=== PATIENT | male | born 1945 | race Caucasian/White ===

== ENCOUNTER 2016-04-09 09:39 | Outpatient (RCR) | payer OTHER, MEDICARE ==
[2016-03-18 13:21] LABS: BASOPHILS # (AUTO) 0.1 10^3/uL (0.0-0.1); BASOPHILS % (AUTO) 1 % (0-10); EOSINOPHILS # (AUTO) 0.2 10^3/uL (0.0-0.3); EOSINOPHILS % (AUTO) 2 % (0-10); LYMPHOCYTES # (AUTO) 2.2 X 10^3 (1.0-4.0); LYMPHOCYTES % (AUTO) 28 % (12-44); MEAN CORPUSCULAR HEMOGLOBIN 32 PG (25-34); MEAN CORPUSCULAR HGB CONC 35 G/DL (32-36); MEAN CORPUSCULAR VOLUME 90 FL (80-99); MEAN PLATELET VOLUME 10.2 FL (7.4-10.4); MONOCYTES # (AUTO) 0.5 X 10^3 (0.0-1.0); MONOCYTES % (AUTO) 7 % (0-12); NEUTROPHILS # (AUTO) 4.9 X 10^3 (1.8-7.8); NEUTROPHILS % (AUTO) 63 % (42-75); PLATELET COUNT 287 10^3/uL (130-400); RED BLOOD COUNT 4.71 10^6/uL (4.35-5.85); RED CELL DISTRIBUTION WIDTH 14.9 % (10.0-14.5); WHITE BLOOD COUNT 7.8 10^3/uL (4.3-11.0)
[2016-03-18 14:02] LABS: ALANINE AMINOTRANSFERASE 31 U/L (0-55); ALBUMIN 4.4 G/DL (3.2-4.5); ANION GAP 9 MMOL/L (5-14); ASPARTATE AMINO TRANSFERASE 25 U/L (5-34); BILIRUBIN,TOTAL 0.4 MG/DL (0.1-1.0); BLOOD UREA NITROGEN 11 MG/DL (7-18); BUN/CREATININE RATIO 11; CALCIUM 9.7 MG/DL (8.5-10.1); CARBON DIOXIDE 24 MMOL/L (21-32); CHLORIDE 106 MMOL/L (98-107); GFR ESTIMATED > 60; GLUCOSE 105 MG/DL (70-105); SODIUM 139 MMOL/L (135-145); TOTAL PROTEIN 7.4 G/DL (6.4-8.2)
[2016-03-18 14:25] LABS: LACTATE DEHYDROGENASE 189 U/L (125-220)
[2016-03-18 14:28] LABS: PEP REPORT SEE PATH REPORT
[2016-03-18 14:47] LABS: ERYTHROCYTE SEDIMENTATION RATE 48 MM/HR (0-30)
[2016-03-19 03:58] LABS: IMMUNOGLOBULIN IGA 268 mg/dL (71-263); IMMUNOGLOBULIN IGG 680 mg/dL (672-1680); LIGHT CHAIN KAPPA SERUM QUANT 17.91 mg/L (3.30-19.40); LIGHT CHAIN LAMBDA SERUM QUANT 17.17 mg/L (5.71-26.30)
[2016-03-19 08:03] LABS: IMMUNOGLOBULIN IGM 302 mg/dL (47-209)
[2016-03-21 07:32] LABS: CLIN PATHOLOGY REPORT FOOTNOTE; SERUM PROTEIN ELEC DETAIL L-16-0014529
[2016-03-24 13:38] LABS: RED BLOOD COUNT 4.54 10^6/uL (4.35-5.85); RETICULOCYTE % 0.72 % (0.50-2.40)
[~2016-04-09 09:39] MED LIST: LEVO500T2 PO; NPD5OP OP; PRD20T PO; TRAM50TA2 PO
[2016-04-09 09:59] LABS: BASOPHILS # (AUTO) 0.1 10^3/uL (0.0-0.1); BASOPHILS % (AUTO) 1 % (0-10); EOSINOPHILS # (AUTO) 0.3 10^3/uL (0.0-0.3); EOSINOPHILS % (AUTO) 4 % (0-10); LYMPHOCYTES # (AUTO) 2.2 X 10^3 (1.0-4.0); LYMPHOCYTES % (AUTO) 30 % (12-44); MEAN CORPUSCULAR HEMOGLOBIN 31 PG (25-34); MEAN CORPUSCULAR HGB CONC 34 G/DL (32-36); MEAN CORPUSCULAR VOLUME 91 FL (80-99); MEAN PLATELET VOLUME 10.2 FL (7.4-10.4); MONOCYTES # (AUTO) 0.5 X 10^3 (0.0-1.0); MONOCYTES % (AUTO) 7 % (0-12); NEUTROPHILS # (AUTO) 4.1 X 10^3 (1.8-7.8); NEUTROPHILS % (AUTO) 58 % (42-75); PLATELET COUNT 264 10^3/uL (130-400); RED BLOOD COUNT 4.51 10^6/uL (4.35-5.85); RED CELL DISTRIBUTION WIDTH 14.6 % (10.0-14.5); WHITE BLOOD COUNT 7.1 10^3/uL (4.3-11.0)
[2016-04-09 10:38] LABS: ALANINE AMINOTRANSFERASE 24 U/L (0-55); ANION GAP 10 MMOL/L (5-14); ASPARTATE AMINO TRANSFERASE 23 U/L (5-34); BILIRUBIN,TOTAL 0.3 MG/DL (0.1-1.0); BLOOD UREA NITROGEN 8 MG/DL (7-18); BUN/CREATININE RATIO 8; CALCIUM 9.4 MG/DL (8.5-10.1); CARBON DIOXIDE 21 MMOL/L (21-32); CHLORIDE 108 MMOL/L (98-107); CREATININE SERUM 0.96 MG/DL (0.60-1.30); GFR ESTIMATED > 60; GLUCOSE 150 MG/DL (70-105); POTASSIUM 4.4 MMOL/L (3.6-5.0); SODIUM 139 MMOL/L (135-145); TOTAL PROTEIN 6.9 G/DL (6.4-8.2)
== END 2016-06-16 | disposition home or self-care (01) ==
LOC: ONC 09:39
PROVIDERS: ATTEND Internal Medicine Hematology & Oncology
DX: D47.2 Monoclonal gammopathy (principal); B02.9 Zoster without complications; E78.5 Hyperlipidemia, unspecified; F17.210 Nicotine dependence, cigarettes, uncomplicated; Z79.82 Long term (current) use of aspirin; Z79.899 Other long term (current) drug therapy
CPT/HCPCS: 36415; 80053; 82232; 82784; 83615; 83883; 84155; 84165; 85025; 85045; 85652; 85810; 86880; 99213; 99214

== ENCOUNTER → 2016-07-28 | Outpatient (CLI) | payer OTHER, MEDICARE ==
--- NOTE | 2016-07-28 08:31 | Diagnostic Imaging Report ---
PROCEDURE: US Thyroid. TECHNIQUE: Multiple real-time grayscale images were obtained of the thyroid in various projections. INDICATION: Monoclonal gammopathy. COMPARISON: None. FINDINGS: Both thyroid lobes demonstrate smooth and homogenous echotexture. There are no focal lesions seen. Color flow Doppler demonstrates normal and symmetric vascularity, bilaterally. The right lobe measures 4.6 x 1.6 x 1.8 cm, the left lobe measures 3.8 x 1.6 x 1.9 cm. The isthmus measures is within normal limits. IMPRESSION: Unremarkable thyroid sonogram. Dictated by: Dictated on workstation # [id number]
== END ==
LOC: RAD 07:20
PROVIDERS: ATTEND Internal Medicine Hematology & Oncology
DX: D47.2 Monoclonal gammopathy (principal); E78.5 Hyperlipidemia, unspecified
CPT/HCPCS: 76536

== ENCOUNTER 2016-08-06 09:40 | Outpatient (RCR) | payer OTHER, MEDICARE ==
[2016-08-06 09:57] LABS: BASOPHILS % (AUTO) 0 % (0-10); EOSINOPHILS # (AUTO) 0.2 10^3/uL (0.0-0.3); EOSINOPHILS % (AUTO) 2 % (0-10); LYMPHOCYTES # (AUTO) 2.4 X 10^3 (1.0-4.0); LYMPHOCYTES % (AUTO) 24 % (12-44); MEAN CORPUSCULAR HEMOGLOBIN 31 PG (25-34); MEAN CORPUSCULAR HGB CONC 35 G/DL (32-36); MEAN CORPUSCULAR VOLUME 89 FL (80-99); MONOCYTES # (AUTO) 0.5 X 10^3 (0.0-1.0); MONOCYTES % (AUTO) 5 % (0-12); NEUTROPHILS # (AUTO) 6.8 X 10^3 (1.8-7.8); NEUTROPHILS % (AUTO) 68 % (42-75); PLATELET COUNT 226 10^3/uL (130-400); RED BLOOD COUNT 4.91 10^6/uL (4.35-5.85); RED CELL DISTRIBUTION WIDTH 14.2 % (10.0-14.5); WHITE BLOOD COUNT 9.9 10^3/uL (4.3-11.0)
[2016-08-06 10:27] LABS: ALANINE AMINOTRANSFERASE 23 U/L (0-55); ANION GAP 10 MMOL/L (5-14); ASPARTATE AMINO TRANSFERASE 22 U/L (5-34); BILIRUBIN,TOTAL 0.4 MG/DL (0.1-1.0); BLOOD UREA NITROGEN 12 MG/DL (7-18); BUN/CREATININE RATIO 12; CALCIUM 9.6 MG/DL (8.5-10.1); CARBON DIOXIDE 22 MMOL/L (21-32); CHLORIDE 107 MMOL/L (98-107); CREATININE SERUM 1.01 MG/DL (0.60-1.30); GFR ESTIMATED > 60; GLUCOSE 139 MG/DL (70-105); POTASSIUM 4.2 MMOL/L (3.6-5.0); SODIUM 139 MMOL/L (135-145); TOTAL PROTEIN 7.1 G/DL (6.4-8.2)
[2016-08-06 10:35] LABS: ERYTHROCYTE SEDIMENTATION RATE 22 MM/HR (0-30)
[2016-08-06 10:49] LABS: THYROID STIMULATING HORMONE 1.17 UIU/ML (0.35-4.94)
== END 2016-11-04 | disposition home or self-care (01) ==
LOC: ONC 09:40
PROVIDERS: ATTEND Internal Medicine Hematology & Oncology
DX: D47.2 Monoclonal gammopathy (principal); B02.9 Zoster without complications; E78.5 Hyperlipidemia, unspecified; F17.210 Nicotine dependence, cigarettes, uncomplicated; Z79.82 Long term (current) use of aspirin; Z79.899 Other long term (current) drug therapy
CPT/HCPCS: 36415; 80053; 84439; 84443; 85025; 85652; 99213

== ENCOUNTER 2017-08-05 12:37 | Outpatient (RCR) | payer OTHER, MEDICARE ==
[2017-07-27 09:47] LABS: BASOPHILS % (AUTO) 1 % (0-10); EOSINOPHILS # (AUTO) 0.3 10^3/uL (0.0-0.3); EOSINOPHILS % (AUTO) 4 % (0-10); HEMATOCRIT 41 % (40-54); HEMOGLOBIN 14.2 G/DL (13.3-17.7); LYMPHOCYTES # (AUTO) 1.9 X 10^3 (1.0-4.0); LYMPHOCYTES % (AUTO) 26 % (12-44); MEAN CORPUSCULAR HEMOGLOBIN 31 PG (25-34); MEAN CORPUSCULAR HGB CONC 35 G/DL (32-36); MEAN CORPUSCULAR VOLUME 90 FL (80-99); MEAN PLATELET VOLUME 11.2 FL (7.4-10.4); MONOCYTES # (AUTO) 0.5 X 10^3 (0.0-1.0); MONOCYTES % (AUTO) 6 % (0-12); NEUTROPHILS # (AUTO) 4.6 X 10^3 (1.8-7.8); NEUTROPHILS % (AUTO) 63 % (42-75); PLATELET COUNT 208 10^3/uL (130-400); RED BLOOD COUNT 4.56 10^6/uL (4.35-5.85); WHITE BLOOD COUNT 7.3 10^3/uL (4.3-11.0)
[2017-07-27 10:11] LABS: ALANINE AMINOTRANSFERASE 17 U/L (0-55); ALBUMIN 3.8 GM/DL (3.2-4.5); ALKALINE PHOSPHATASE 77 U/L (40-136); BILIRUBIN,TOTAL 0.5 MG/DL (0.1-1.0); BUN/CREATININE RATIO 11; CALCIUM 9.4 MG/DL (8.5-10.1); CARBON DIOXIDE 27 MMOL/L (21-32); CHLORIDE 110 MMOL/L (98-107); CREATININE SERUM 0.95 MG/DL (0.60-1.30); GFR ESTIMATED > 60; GLUCOSE 112 MG/DL (70-105); POTASSIUM 4.4 MMOL/L (3.6-5.0); SODIUM 141 MMOL/L (135-145); TOTAL PROTEIN 7.1 GM/DL (6.4-8.2)
[2017-07-31 08:02] LABS: IMMUNOFIX PATH REPORT NUMBER Complete (Complete)
[2017-10-01] MEDS ORDERED: SIMV10TA3 PO (08:41)
[2017-10-01] MEDS ORDERED: ASPI-586 PO (08:41)
== END 2017-10-25 | disposition home or self-care (01) ==
LOC: ONC 12:37
PROVIDERS: ATTEND Internal Medicine Hematology & Oncology
DX: D47.2 Monoclonal gammopathy (principal); B02.9 Zoster without complications; E78.5 Hyperlipidemia, unspecified; F17.210 Nicotine dependence, cigarettes, uncomplicated; Z79.82 Long term (current) use of aspirin; Z79.899 Other long term (current) drug therapy
CPT/HCPCS: 36415; 80053; 83883; 84155; 84165; 85025; 86334; 99213

== ENCOUNTER 2017-10-01 08:30 | Outpatient (CLI) | payer OTHER, MEDICARE ==
[~2017-10-01] VITALS: Ht 175.3 cm; Wt 77.1 kg
[2017-10-01] MEDS ORDERED: SIMV10TA3 PO (08:41)
[2017-10-01] MEDS ORDERED: ASPI-586 PO (08:41)
== END 2017-10-01 09:04 ==
LOC: PREOP 08:30
PROVIDERS: ATTEND Specialist
DX: Z01.818 Encounter for other preprocedural examination (principal); H25.11 Age-related nuclear cataract, right eye

== ENCOUNTER 2017-10-02 07:13 | Day surgery (SDC) | payer OTHER, MEDICARE ==
[~2017-10-02] VITALS: Ht 175.3 cm; Wt 77.1 kg
[~2017-10-02 07:13] MED LIST changes: +ASPI-586 PO; +SIMV10TA3 PO
--- OUTSIDE RECORDS SUMMARY | 2017-10-02 07:18 | XMS REPORT | Continuity of Care Document ---
Author Author [facility] Organization [facility] Address Unknown Phone Unavailable Allergies Active Description Code Type Severity Reaction Onset Reported/Identified Relationship to Patient Clinical Status Yes cephalexin [id number] Drug Allergy Unknown N/A 05/01/2015 Yes PEN PEN Unknown N/ A 05/01/2015 Medications There is no data. 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 02/29/2016 SHAKEEL HALL, KAR R Ot B02.9 ZOSTER WITHOUT COMPLICATIONS 02/29/2016 ESEQUIEL CHEEMA MD Ot 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 02/29/2016 SHAKEEL HALL, KAR R Ot B02.9 ZOSTER WITHOUT COMPLICATIONS 03/19/2016 ESEQUIEL CHEEMA MD Ot 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 03/30/2016 GRETCHEN HALL, JEAN Martínez Ot B02.9 ZOSTER WITHOUT COMPLICATIONS 03/30/2016 GRETCHEN HALL, JEAN Martínez Ot D47.2 MONOCLONAL GAMMOPATHY 03/30/2016 GRETCHEN HALL, JEAN Martínez Ot E78.5 HYPERLIPIDEMIA, UNSPECIFIED 04/04/2016 DENI HALL, ESEQUIEL Holley Ot 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 05/09/2016 JEAN GODINEZ MD Ot B02.9 ZOSTER WITHOUT COMPLICATIONS 05/09/2016 GRETCHEN HALL, JEAN Martínez Ot D47.2 MONOCLONAL GAMMOPATHY 05/09/2016 JEAN GODINEZ MD Ot E78.5 HYPERLIPIDEMIA, UNSPECIFIED 05/14/2016 SHAKEEL HALL, KAR Griffin Ot B02.9 ZOSTER WITHOUT COMPLICATIONS 05/22/2016 JEAN GODINEZ MD Ot B02.9 ZOSTER WITHOUT COMPLICATIONS 05/22/2016 JEAN GODINEZ MD Ot D47.2 MONOCLONAL GAMMOPATHY 05/22/2016 JEAN GODINEZ MD Ot E78.5 HYPERLIPIDEMIA, UNSPECIFIED 06/16/2016 JEAN GODINEZ MD Ot B02.9 ZOSTER WITHOUT COMPLICATIONS 06/16/2016 JEAN GODINEZ MD Ot D47.2 MONOCLONAL GAMMOPATHY 06/16/2016 JEAN GODINEZ MD Ot E78.5 HYPERLIPIDEMIA, UNSPECIFIED 06/16/2016 JEAN GODINEZ MD Ot F17.210 NICOTINE DEPENDENCE, CIGARETTES, UNCOMPL 06/16/2016 JEAN GODINEZ MD Ot Z79.82 SPD MANAGER (CURRENT) USE OF ASPIRIN 06/16/2016 JEAN GODINEZ MD Ot Z79.899 OTHER CARE HOME (CURRENT) DRUG THERAPY 07/28/2016 JEAN GODINEZ MD Ot D47.2 MONOCLONAL GAMMOPATHY 07/28/2016 JEAN GODINEZ MD Ot E78.5 HYPERLIPIDEMIA, UNSPECIFIED 08/07/2016 JEAN GODINEZ MD Ot B02.9 ZOSTER WITHOUT COMPLICATIONS 08/07/2016 JEAN GODINEZ MD Ot D47.2 MONOCLONAL GAMMOPATHY 08/07/2016 JEAN GODINEZ MD Ot E78.5 HYPERLIPIDEMIA, UNSPECIFIED 08/07/2016 JEAN GODINEZ MD Ot F17.210 NICOTINE DEPENDENCE, CIGARETTES, UNCOMPL 08/07/2016 JEAN GODINEZ MD Ot Z79.82 CARE HOME (CURRENT) USE OF ASPIRIN 08/07/2016 JEAN GODINEZ MD Ot Z79.899 OTHER SPD MANAGER (CURRENT) DRUG THERAPY 09/22/2016 DENI HALL, ESEQUIEL Holley Ot 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 09/22/2016 SHAKEEL HALL, KAR Griffin Ot B02.9 ZOSTER WITHOUT COMPLICATIONS 09/22/2016 JEAN GODINEZ MD Ot B02.9 ZOSTER WITHOUT COMPLICATIONS 09/22/2016 JEAN GODINEZ MD Ot D47.2 MONOCLONAL GAMMOPATHY 09/22/2016 JEAN GODINEZ MD Ot E78.5 HYPERLIPIDEMIA, UNSPECIFIED 09/22/2016 JEAN GODINEZ MD Ot D47.2 MONOCLONAL GAMMOPATHY 09/22/2016 JEAN GODINEZ MD, Ot E78.5 HYPERLIPIDEMIA, UNSPECIFIED 09/22/2016 JEAN GODINEZ MD Ot B02.9 ZOSTER WITHOUT COMPLICATIONS 09/22/2016 JEAN GODINEZ MD, Ot D47.2 MONOCLONAL GAMMOPATHY 09/22/2016 JEAN GODINEZ MD, Ot E78.5 HYPERLIPIDEMIA, UNSPECIFIED 09/22/2016 JEAN GODINEZ MD Ot F17.210 NICOTINE DEPENDENCE, CIGARETTES, UNCOMPL 09/22/2016 JEAN GODINEZ MD Ot Z79.82 SPD MANAGER (CURRENT) USE OF ASPIRIN 09/22/2016 JEAN GODINEZ MD Ot Z79.899 OTHER SPD MANAGER (CURRENT) DRUG THERAPY 10/10/2016 JEAN GODINEZ MD Ot B02.9 ZOSTER WITHOUT COMPLICATIONS 10/10/2016 JEAN GODINEZ MD, Ot D47.2 MONOCLONAL GAMMOPATHY 10/10/2016 JEAN GODINEZ MD, Ot E78.5 HYPERLIPIDEMIA, UNSPECIFIED 10/10/2016 JEAN GODINEZ MD Ot F17.210 NICOTINE DEPENDENCE, CIGARETTES, UNCOMPL 10/10/2016 JEAN GODINEZ MD Ot Z79.82 SPD MANAGER (CURRENT) USE OF ASPIRIN 10/10/2016 JEAN GODINEZ MD Ot Z79.899 OTHER CARE HOME (CURRENT) DRUG THERAPY 11/04/2016 JEAN GODINEZ MD Ot B02.9 ZOSTER WITHOUT COMPLICATIONS 11/04/2016 JEAN GODINEZ MD, Ot D47.2 MONOCLONAL GAMMOPATHY 11/04/2016 JEAN GODINEZ MD Ot E78.5 HYPERLIPIDEMIA, UNSPECIFIED 11/04/2016 JEAN GODINEZ MD Ot F17.210 NICOTINE DEPENDENCE, CIGARETTES, UNCOMPL 11/04/2016 JEAN GODINEZ MD Ot Z79.82 SPD MANAGER (CURRENT) USE OF ASPIRIN 11/04/2016 JEAN GODINEZ MD Ot Z79.899 OTHER SPD MANAGER (CURRENT) DRUG THERAPY 12/29/2016 JEAN GODINEZ MD, Ot D47.2 MONOCLONAL GAMMOPATHY 12/29/2016 JEAN GODINEZ MD, Ot E78.5 HYPERLIPIDEMIA, UNSPECIFIED 01/14/2017 JEAN GODINEZ MD, Ot D47.2 MONOCLONAL GAMMOPATHY 01/14/2017 JEAN GODINEZ MD, Ot E78.5 HYPERLIPIDEMIA, UNSPECIFIED 06/14/2017 DENI HALL, ESEQUIEL Holley Ot 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 06/14/2017 SHAKEEL HALL, KAR R Ot B02.9 ZOSTER WITHOUT COMPLICATIONS 06/14/2017 GRETCHEN HALL, JEAN K Ot B02.9 ZOSTER WITHOUT COMPLICATIONS 06/14/2017 GRETCHEN HALL, JEAN K Ot D47.2 MONOCLONAL GAMMOPATHY 06/14/2017 GRETCHEN HALL, JEAN K Ot E78.5 HYPERLIPIDEMIA, UNSPECIFIED 06/14/2017 GRETCHEN HALL, JEAN K Ot D47.2 MONOCLONAL GAMMOPATHY 06/14/2017 GRETCHEN HALL, JEAN K Ot E78.5 HYPERLIPIDEMIA, UNSPECIFIED 06/14/2017 ARISTIDES HALL, ANGEL Ot B02.9 ZOSTER WITHOUT COMPLICATIONS 06/14/2017 ANGEL IRVING MD, Ot D47.2 MONOCLONAL GAMMOPATHY 06/14/2017 ANGEL IRVING MD, Ot E78.5 HYPERLIPIDEMIA, UNSPECIFIED 06/14/2017 ANGEL IRVING MD Ot F17.210 NICOTINE DEPENDENCE, CIGARETTES, UNCOMPL 06/14/2017 ANGEL IRVING MD Ot Z79.82 SPD MANAGER (CURRENT) USE OF ASPIRIN 06/14/2017 ANGEL IRVING MD, Ot Z79.899 OTHER SPD MANAGER (CURRENT) DRUG THERAPY 07/27/2017 ESEQUIEL CHEEMA MD, Ot 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 07/27/2017 SHAKEEL HALL, KAR R Ot B02.9 ZOSTER WITHOUT COMPLICATIONS 07/27/2017 GRETCHEN HALL, JEAN K Ot B02.9 ZOSTER WITHOUT COMPLICATIONS 07/27/2017 GRETCHEN HALL, JEAN K Ot D47.2 MONOCLONAL GAMMOPATHY 07/27/2017 JEAN GODINEZ MD K Ot E78.5 HYPERLIPIDEMIA, UNSPECIFIED 07/27/2017 JEAN GODINEZ MD Ot D47.2 MONOCLONAL GAMMOPATHY 07/27/2017 JEAN GODINEZ MD K Ot E78.5 HYPERLIPIDEMIA, UNSPECIFIED 08/04/2017 ANGEL IRVING MD Ot B02.9 ZOSTER WITHOUT COMPLICATIONS 08/04/2017 ANGEL IRVING MD, Ot D47.2 MONOCLONAL GAMMOPATHY 08/04/2017 ANGEL IRVING MD, Ot E78.5 HYPERLIPIDEMIA, UNSPECIFIED 08/04/2017 ANGEL IRVING MD Ot F17.210 NICOTINE DEPENDENCE, CIGARETTES, UNCOMPL 08/04/2017 ANGEL IRVING MD Ot Z79.82 CARE HOME (CURRENT) USE OF ASPIRIN 08/04/2017 ANGEL IRVING MD, Ot Z79.899 OTHER CARE HOME (CURRENT) DRUG THERAPY 09/25/2017 ESEQUIEL CHEEMA MD Ot 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 09/25/2017 SHAKEEL HALL, KAR R Ot B02.9 ZOSTER WITHOUT COMPLICATIONS 09/25/2017 JEAN GODINEZ MD Ot B02.9 ZOSTER WITHOUT COMPLICATIONS 09/25/2017 GRETCHEN HALL, JEAN Martínez Ot D47.2 MONOCLONAL GAMMOPATHY 09/25/2017 JEAN GODINEZ MD Ot E78.5 HYPERLIPIDEMIA, UNSPECIFIED 09/25/2017 JEAN GODINEZ MD Ot D47.2 MONOCLONAL GAMMOPATHY 09/25/2017 JEAN GODINEZ MD Ot E78.5 HYPERLIPIDEMIA, UNSPECIFIED 09/25/2017 ANGEL IRVING MD, Ot B02.9 ZOSTER WITHOUT COMPLICATIONS 09/25/2017 ANGEL IRVING MD, Ot D47.2 MONOCLONAL GAMMOPATHY 09/25/2017 ANGEL IRVING MD, Ot E78.5 HYPERLIPIDEMIA, UNSPECIFIED 09/25/2017 ANGEL IRVING MD, Ot F17.210 NICOTINE DEPENDENCE, CIGARETTES, UNCOMPL 09/25/2017 ANGEL IRVING MD, Ot Z79.82 CARE HOME (CURRENT) USE OF ASPIRIN 09/25/2017 ANGEL IRVING MD, Ot Z79.899 OTHER CARE HOME (CURRENT) DRUG THERAPY Procedures There is no data. Results Test Result Range [id number] - 02/11/16 12:55 Serum or plasma urea nitrogen measurement (mass/volume) 10 mg/dL 7-18 Serum or plasma creatinine measurement (mass/volume) 0.91 mg/dL 0.60-1.30 Serum or plasma urea nitrogen/creatinine mass ratio 11 NRG Serum or plasma creatinine measurement with calculation of estimated glomerular filtration rate > NRG Automated blood complete blood count (hemogram) panel - 02/11/16 12:56 Blood leukocytes automated count (number/volume) 12.3 10*3/uL 4.3-11.0 Blood erythrocytes automated count (number/volume) 4.92 10*6/uL 4.35-5.85 Venous blood hemoglobin measurement (mass/volume) 15.4 g/dL 13.3-17.7 Blood hematocrit (volume fraction) 44 % 40-54 Automated erythrocyte mean corpuscular volume 89 [foz_us] 80-99 Automated erythrocyte mean corpuscular hemoglobin (mass per erythrocyte) 31 pg 25-34 Automated erythrocyte mean corpuscular hemoglobin concentration measurement ( mass/volume) 35 g/dL 32-36 Automated erythrocyte distribution width ratio 14.5 % 10.0-14.5 Automated blood platelet count (count/volume) 256 10*3/uL 130-400 Automated blood platelet mean volume measurement 10.6 [foz_us] 7.4-10.4 Erythrocyte sedimentation rate by westergren method - 02/11/16 12:56 Erythrocyte sedimentation rate by westergren method 10 mm 0-30 Serum or plasma glucose measurement (mass/volume) - 02/11/16 12:56 Serum or plasma glucose measurement (mass/volume) 164 mg/dL 70-105 THYROID STIMULATING HORMONE - 02/11/16 12:56 THYROID STIMULATING HORMONE 1.29 u[iU]/mL 0.35-4.94 Hemoglobin A1c - 02/28/16 11:50 Hemoglobin A1c 5.6 % 4.5-6.2 Encounters ACCT No. Visit Date/Time Discharge Status Pt. Type Provider Facility Loc./Unit Complaint [id number] 08/05/2017 12:37:00 08/05/2017 23:59:59 CLS Outpatient ANGEL IRVING MD [facility] ONC [id number] 08/06/2016 09:40:00 11/04/2016 00:01:00 DIS Outpatient JEAN GODINEZ MD [facility] ONC [id number] 07/28/2016 07:20:00 07/28/2016 23:59:59 CLS Outpatient JEAN GODINEZ MD [facility] RAD D47.2,E78.5 [id number] 04/09/2016 09:39:00 06/16/2016 00:01:00 DIS Outpatient JEAN GODINEZ MD [facility] ONC [id number] 03/24/2016 12:46:00 03/24/2016 23:59:59 CLS Outpatient JEAN GODINEZ MD [facility] RAD D47.2,HLP [id number] 02/28/2016 11:28:00 02/28/2016 23:59:59 CLS Outpatient KAR BECKFORD MD [facility] LAB RECURRENT SHINGLES [id number] 02/11/2016 12:49:00 02/11/2016 23:59:59 CLS Outpatient ESEQUIEL CHEEMA MD [facility] RAD G51.0 [id number] 05/01/2015 07:36:00 05/01/2015 09:58:00 DIS Emergency DASHA PROCTOR DO [facility] ER FACIAL WEAKNESS [id number] 10/02/2017 09:00:00 PEN [facility]read[facility] [id number] 05/20/2010 15:26:00 Document Registration
[2017-10-02] MEDS: TETRACAINE 0.5% OPHTH SOLN 4 ML BTL (SINGLE DOSE ONLY) OU PRN ×4 (07:28→07:46)
[2017-10-02] MEDS ORDERED: LIDOCAINE PF 1% 2 ML AMP IR PRN (07:30)
[2017-10-02] MEDS ORDERED: VANCOMYCIN/BSS (COMPOUNDED) 10 MG/ML SYR OP ONE (07:30)
[2017-10-02] MEDS ORDERED: TIMOLOL MALEATE 0.5% 5 ML (TIMOPTIC) BTL OU PRN (07:30)
[2017-10-02] MEDS ORDERED: EPINEPHrine INJECTION 1 MG/ML AMP INJ ONE (07:30)
[2017-10-02] MEDS ORDERED: POVIDONE (BETADINE) OPHTH SOLN 5% 30 ML OP ONE (07:30)
[2017-10-02] MEDS: CYCLOPENTOLATE 1% (CYCLOGYL) 2 ML DROPS OP SCH ×3 (07:34→07:46)
[2017-10-02] MEDS: PHENYLEPHRINE 10% OPHTH (NEO-SYN) 5 ML BTL OU SCH ×3 (07:34→07:46)
[2017-10-02] MEDS ORDERED: MIDAZOLAM 2 MG/2 ML (VERSED) VIAL ONE (07:41)
--- NOTE | 2017-10-02 07:55 | Ophthalmologist Pre-Op Note ---
Pre-Operative Progress Note H&P Reviewed The H&P was reviewed, patient examined and no changes noted. Date H&P Reviewed: Oct 02, 2017 Time H&P Reviewed: 07:55 Pre-Op Dx Cataract, Right Eye TAMERA ANAND MD Oct 02, 2017 07:55
[2017-10-02 08:03] VITALS: BP 154/81
--- NOTE | 2017-10-02 08:18 | Ophthalmology Operative Report ---
Cataract removal/placement IOL PREOPERATIVE DIAGNOSIS: Cataract Right Eye POSTOPERATIVE DIAGNOSIS: Cataract Right Eye PROCEDURE: Cataract removal and placement of posterior chamber implant, right eye SURGEON: Isaac Anand ANESTHESIA: Topical with sedation COMPLICATIONS: None ESTIMATED BLOOD LOSS: Minimal DESCRIPTION OF PROCEDURE: After proper informed consent was obtained, the patient, a 72 male, was taken to the Operating Room and the right eye was anesthetized with tetracaine. The right eye was then prepped and draped in the usual manner. A wire lid speculum was placed. A paracentesis was made at the left hand position. Preservative free lidocaine was injected into the anterior chamber followed by viscoelastic. A clear corneal incision was made in the temporal position. A capsulorrhexis was preformed and the central nuclear and cortical material were removed. The posterior capsule was polished and Toan 22.0 [id number] IOL was placed into the capsular bag. The residual viscoelastic was aspirated and balanced saline solution was injected into the anterior chamber. 0.1ml of Vancomycin (10mg/0.1ml ) was injected into the anterior chamber. The wound was checked and found to be water tight. The patient tolerated the procedure well without complications. ISAAC ANAND MD Oct 02, 2017 08:18
[2017-10-02 08:27] VITALS: BP 161/78
--- NOTE | 2017-10-02 13:48 | Anesthesia-General Post-Op ---
MAC Patient Condition Mental Status/LOC: Same as Preop Cardiovascular: Satisfactory Nausea/Vomiting: Absent Respiratory: Satisfactory Pain: Controlled Complications: Absent Post Op Complications Complications None Follow Up Care/Instructions Patient Instructions None needed. Anesthesiology Discharge Order Discharge Order Patient is doing well, no complaints, stable vital signs, no apparent adverse anesthesia problems. No complications reported per nursing. ANITRA CONTRERAS CRNA Oct 02, 2017 13:48
== END 2017-10-02 08:27 | disposition home or self-care (01) ==
LOC: SDC 07:13
PROVIDERS: ATTEND Specialist
DX: H25.11 Age-related nuclear cataract, right eye (principal); F17.210 Nicotine dependence, cigarettes, uncomplicated; Z79.82 Long term (current) use of aspirin

== ENCOUNTER 2017-10-30 07:19 | Day surgery (SDC) | payer OTHER, MEDICARE ==
[~2017-10-30] VITALS: Ht 175.3 cm; Wt 77.1 kg
[2017-10-30 07:30] VITALS: BP 161/84
[2017-10-30] MEDS ORDERED: VANCOMYCIN/BSS (COMPOUNDED) 10 MG/ML SYR OP ONE (07:30)
[2017-10-30] MEDS ORDERED: EPINEPHrine INJECTION 1 MG/ML AMP INJ ONE (07:30)
[2017-10-30] MEDS ORDERED: POVIDONE (BETADINE) OPHTH SOLN 5% 30 ML OP ONE (07:30)
[2017-10-30] MEDS ORDERED: LIDOCAINE PF 1% 2 ML AMP IR PRN (07:30)
[2017-10-30] MEDS ORDERED: TIMOLOL MALEATE 0.5% 5 ML (TIMOPTIC) BTL OU PRN (07:30)
[2017-10-30] MEDS: TETRACAINE 0.5% OPHTH SOLN 4 ML BTL (SINGLE DOSE ONLY) OU PRN ×4 (07:39→07:49)
[2017-10-30] MEDS: CYCLOPENTOLATE 1% (CYCLOGYL) 2 ML DROPS OP SCH ×3 (07:42→07:49)
[2017-10-30] MEDS: PHENYLEPHRINE 10% OPHTH (NEO-SYN) 5 ML BTL OU SCH ×3 (07:42→07:49)
[2017-10-30] MEDS ORDERED: MIDAZOLAM 2 MG/2 ML (VERSED) VIAL ONE (08:12)
--- NOTE | 2017-10-30 08:28 | Ophthalmologist Pre-Op Note ---
Pre-Operative Progress Note H&P Reviewed The H&P was reviewed, patient examined and no changes noted. Date H&P Reviewed: Oct 30, 2017 Time H&P Reviewed: 08:28 Pre-Op Dx Cataract, Left Eye TAMERA ANAND MD Oct 30, 2017 08:28
--- NOTE | 2017-10-30 08:49 | Ophthalmology Operative Report ---
Cataract removal/placement IOL PREOPERATIVE DIAGNOSIS: Cataract Left Eye POSTOPERATIVE DIAGNOSIS: Cataract Left Eye PROCEDURE: Cataract removal and placement of posterior chamber implant, left eye SURGEON: Isaac Anand ANESTHESIA: Topical with sedation COMPLICATIONS: None ESTIMATED BLOOD LOSS: Minimal DESCRIPTION OF PROCEDURE: After proper informed consent was obtained, the patient, a 72 male, was taken to the Operating Room and the left eye was anesthetized with tetracaine. The left eye was then prepped and draped in the usual manner. A wire lid speculum was placed. A paracentesis was made at the left hand position. Preservative free lidocaine was injected into the anterior chamber followed by viscoelastic. A clear corneal incision was made in the temporal position. A capsulorrhexis was preformed and the central nuclear and cortical material were removed. The posterior capsule was polished and an Toan 22.0 AUOOTO IOL was placed into the capsular bag. The residual viscoelastic was aspirated and balanced saline solution was injected into the anterior chamber. 0.1 ml of Vancomycin (1mg/0.1ml ) was injected into the anterior chamber. The wound was checked and found to be water tight. The patient tolerated the procedure well without complications. ISAAC ANAND MD Oct 30, 2017 08:49
[2017-10-30 09:00] VITALS: BP 154/79
--- NOTE | 2017-10-30 10:48 | Anesthesia-General Post-Op ---
MAC Patient Condition Mental Status/LOC: Same as Preop Cardiovascular: Satisfactory Nausea/Vomiting: Absent Respiratory: Satisfactory Pain: Controlled Complications: Absent Post Op Complications Complications None Follow Up Care/Instructions Patient Instructions None needed. Anesthesiology Discharge Order Discharge Order Patient is doing well, no complaints, stable vital signs, no apparent adverse anesthesia problems. No complications reported per nursing. JENNIFER MENJIVAR CRNA Oct 30, 2017 10:48
== END 2017-10-30 09:00 | disposition home or self-care (01) ==
LOC: SDC 07:19
PROVIDERS: ATTEND Specialist
DX: H26.9 Unspecified cataract (principal); Z79.82 Long term (current) use of aspirin

== ENCOUNTER → 2017-11-11 | Outpatient (CLI) | payer OTHER, MEDICARE | END | disposition home or self-care (01) | LOC: PREOP 05:36 | PROVIDERS: ATTEND Specialist | DX: Z01.818 Encounter for other preprocedural examination (principal) ==

== ENCOUNTER 2018-08-05 14:50 | Outpatient (RCR) | payer OTHER, MEDICARE ==
[2018-08-05 13:13] LABS: BASOPHILS % (AUTO) 1 % (0-10); EOSINOPHILS # (AUTO) 0.3 10^3/uL (0.0-0.3); EOSINOPHILS % (AUTO) 4 % (0-10); HEMATOCRIT 38 % (40-54); HEMOGLOBIN 13.4 G/DL (13.3-17.7); LYMPHOCYTES % (AUTO) 28 % (12-44); MEAN CORPUSCULAR HEMOGLOBIN 31 PG (25-34); MEAN CORPUSCULAR HGB CONC 35 G/DL (32-36); MEAN CORPUSCULAR VOLUME 89 FL (80-99); MEAN PLATELET VOLUME 10.9 FL (7.4-10.4); MONOCYTES # (AUTO) 0.5 X 10^3 (0.0-1.0); MONOCYTES % (AUTO) 7 % (0-12); NEUTROPHILS # (AUTO) 4.2 X 10^3 (1.8-7.8); NEUTROPHILS % (AUTO) 60 % (42-75); PLATELET COUNT 237 10^3/uL (130-400); RED CELL DISTRIBUTION WIDTH 14.3 % (10.0-14.5)
[2018-08-05 13:40] LABS: ALANINE AMINOTRANSFERASE 18 U/L (0-55); ALKALINE PHOSPHATASE 74 U/L (40-136); BILIRUBIN,TOTAL 0.3 MG/DL (0.1-1.0); BUN/CREATININE RATIO 18; CALCIUM 9.4 MG/DL (8.5-10.1); CARBON DIOXIDE 22 MMOL/L (21-32); CHLORIDE 106 MMOL/L (98-107); CREATININE SERUM 0.95 MG/DL (0.60-1.30); GFR ESTIMATED > 60; GLUCOSE 103 MG/DL (70-105); POTASSIUM 4.1 MMOL/L (3.6-5.0); SODIUM 136 MMOL/L (135-145); TOTAL PROTEIN 6.9 GM/DL (6.4-8.2)
[2018-09-05] MEDS ORDERED: SULF-222 PO (17:10)
== END 2018-11-03 | disposition home or self-care (01) ==
LOC: ONC 14:50
PROVIDERS: ATTEND Internal Medicine Hematology & Oncology
DX: D47.2 Monoclonal gammopathy (principal); B02.9 Zoster without complications; E78.5 Hyperlipidemia, unspecified; F17.210 Nicotine dependence, cigarettes, uncomplicated; Z79.82 Long term (current) use of aspirin; Z79.899 Other long term (current) drug therapy
CPT/HCPCS: 36415; 80053; 83883; 84155; 84165; 85025; 99213

== ENCOUNTER 2018-09-05 15:55 | Emergency (ER) | payer MEDICARE, OTHER ==
[~2018-09-05] VITALS: Ht 175.3 cm; Wt 78.9 kg
[2018-09-05] MEDS ORDERED: KETOROLAC 30 MG/ML VIAL IVP STA (16:03)
[2018-09-05] MEDS ORDERED: NS IV 1000 ML 1,000 ML IV ONE (16:03)
[2018-09-05 16:21] LABS: BASOPHILS # (AUTO) 0.1 10^3/uL (0.0-0.1); BASOPHILS % (AUTO) 1 % (0-10); EOSINOPHILS # (AUTO) 0.3 10^3/uL (0.0-0.3); EOSINOPHILS % (AUTO) 2 % (0-10); HEMATOCRIT 42 % (40-54); HEMOGLOBIN 14.6 G/DL (13.3-17.7); LYMPHOCYTES # (AUTO) 2.5 X 10^3 (1.0-4.0); LYMPHOCYTES % (AUTO) 23 % (12-44); MEAN CORPUSCULAR HEMOGLOBIN 30 PG (25-34); MEAN CORPUSCULAR HGB CONC 35 G/DL (32-36); MEAN CORPUSCULAR VOLUME 87 FL (80-99); MEAN PLATELET VOLUME 10.8 FL (7.4-10.4); MONOCYTES # (AUTO) 0.7 X 10^3 (0.0-1.0); MONOCYTES % (AUTO) 7 % (0-12); NEUTROPHILS # (AUTO) 7.2 X 10^3 (1.8-7.8); NEUTROPHILS % (AUTO) 67 % (42-75); PLATELET COUNT 275 10^3/uL (130-400); RED CELL DISTRIBUTION WIDTH 14.1 % (10.0-14.5); WHITE BLOOD COUNT 10.7 10^3/uL (4.3-11.0)
[2018-09-05 16:30] LABS: BILIRUBIN,URINE NEGATIVE (NEGATIVE); CLARITY,URINE CLEAR; COLOR,URINE YELLOW; GLUCOSE, URINE (UA) NEGATIVE (NEGATIVE); KETONES,URINE NEGATIVE (NEGATIVE); LEUKOCYTE ESTERASE ,URINE 3+ (NEGATIVE); NITRITE,URINE NEGATIVE (NEGATIVE); PH,URINE 6 (5-9); PROTEIN,URINE 1+ (NEGATIVE); UROBILINOGEN,URINE NORMAL (NORMAL)
--- NOTE | 2018-09-05 16:34 | ED Back Pain ---
General Chief Complaint: Back Problems Stated Complaint: R SIDE LOWER BACK PAIN Nursing Triage Note: PT CO OF L FLANK PAIN AND LOW BACK PAIN, PT STATES STARTED ON THURSDAY, SENT TO ED BY [facility]ICK CARE Nursing Sepsis Screen: No Definite Risk Source of Information: Patient Exam Limitations: No Limitations History of Present Illness Date Seen by Provider: September 05, 2018 Time Seen by Provider: 15:59 Initial Comments Here with report of right low back pain that has worsened over the past 3 days. He was seen by local clinic and was recommended that he can here for further evaluation due to concerns for kidney stones. He states that the pain came on suddenly and has been persistent although it is waxing and waning. Currently 5 out of 10 but has been up to 10 out of 10. States that it seems to be in the same spot and feels like it's on the inside in the region of the low back on the right. Denies nausea or vomiting. Has not taken anything for the pain. Timing/Duration: 3-4 Days Severity: Moderate Pain/Injury Location: Back Radiation: Other (none) Method of Injury: Unknown Modifying Factors: Improves With Immobilization; Worse With Movement Associated Symptoms: No muscle spasms, No fever, No weakness; lower back pain Allergies and Home Medications Allergies Coded Allergies: Penicillins (Verified Allergy, Unknown, 10/01/17) cephalexin (Verified Allergy, Unknown, 05/01/15) Home Medications Aspirin 81 Mg Tablet.dr, 81 MG PO DAILY, (Reported) Simvastatin 10 Mg Tablet, 10 MG PO HS, (Reported) Patient Home Medication List Home Medication List Reviewed: Yes Review of Systems Constitutional: see HPI; No chills, No fever EENTM: no symptoms reported Respiratory: No short of breath Cardiovascular: No chest pain, No edema Gastrointestinal: No abdominal pain, No nausea, No vomiting Genitourinary: see HPI; No dysuria; pain Musculoskeletal: back pain; No joint pain Skin: no symptoms reported Psychiatric/Neurological: No Symptoms Reported Past Cnhkfxt-Atsgvz-Rjdrdm Hx Past Med/Social Hx: Reviewed Nursing Past Med/Soc Hx Patient Social History Alcohol Use: Occasionally Uses Recreational Drug Use: No Smoking Status: Current Everyday Smoker Type Used: Cigarettes Recent Foreign Travel: No Contact w/Someone Who Travel: No Recent Infectious Disease Expo: No Recent Hopitalizations: No Past Medical History Surgeries: Yes (THROAT) Appendectomy, Tonsillectomy Respiratory: No Cardiac: Yes High Cholesterol, Hypertension Neurological: No Gastrointestinal: No Musculoskeletal: No Endocrine: No Cancer: No Psychosocial: No Integumentary: No Family Medical History Reviewed Nursing Family Hx Physical Exam Vital Signs Vital Signs - First Documented 09/05/18 15:55 Temp 98.1 Pulse 97 Resp 18 B/P (MAP) 129/79 (96) Pulse Ox 98 Capillary Refill : Less Than 3 Seconds Height, Weight, BMI Height: 5'9.00" Weight: 174lbs. 0.0oz. 78.667160pw; BMI Method:Stated General Appearance: No Apparent Distress, WD/WN HEENT: PERRL/EOMI, Pharynx Normal Neck: Non Tender, Supple Cardiovascular: Regular Rate, Rhythm, No Murmur Respiratory: Lungs Clear, Normal Breath Sounds Gastrointestinal: Non Tender, Soft Back: Normal Inspection, No CVA Tenderness, No Vertebral Tenderness Extremity: Normal Range of Motion, Non Tender Neurologic/Psychiatric: Alert, Oriented x3 Skin: Normal Color, Warm/Dry Progress/Results/Core Measures Results/Orders Lab Results Laboratory Tests Test 09/05/18 16:05 09/05/18 16:20 Range/Units White Blood Count 10.7 4.3-11.0 10^3/uL Red Blood Count 4.82 4.35-5.85 10^6/uL Hemoglobin 14.6 13.3-17.7 G/DL Hematocrit 42 40-54 % Mean Corpuscular Volume 87 80-99 FL Mean Corpuscular Hemoglobin 30 25-34 PG Mean Corpuscular Hemoglobin Concent 35 32-36 G/DL Red Cell Distribution Width 14.1 10.0-14.5 % Platelet Count 275 130-400 10^3/uL Mean Platelet Volume 10.8 H 7.4-10.4 FL Neutrophils (%) (Auto) 67 42-75 % Lymphocytes (%) (Auto) 23 12-44 % Monocytes (%) (Auto) 7 0-12 % Eosinophils (%) (Auto) 2 0-10 % Basophils (%) (Auto) 1 0-10 % Neutrophils # (Auto) 7.2 1.8-7.8 X 10^3 Lymphocytes # (Auto) 2.5 1.0-4.0 X 10^3 Monocytes # (Auto) 0.7 0.0-1.0 X 10^3 Eosinophils # (Auto) 0.3 0.0-0.3 10^3/uL Basophils # (Auto) 0.1 0.0-0.1 10^3/uL Sodium Level 134 L 135-145 MMOL/L Potassium Level 4.4 3.6-5.0 MMOL/L Chloride Level 102 98-107 MMOL/L Carbon Dioxide Level 19 L 21-32 MMOL/L Anion Gap 13 5-14 MMOL/L Blood Urea Nitrogen 14 7-18 MG/DL Creatinine 1.27 0.60-1.30 MG/DL Estimat Glomerular Filtration Rate 55 BUN/Creatinine Ratio 11 Glucose Level 101 70-105 MG/DL Calcium Level 9.9 8.5-10.1 MG/DL Corrected Calcium 9.6 8.5-10.1 MG/DL Total Bilirubin 0.6 0.1-1.0 MG/DL Aspartate Amino Transf (AST/SGOT) 18 5-34 U/L Alanine Aminotransferase (ALT/SGPT) 19 0-55 U/L Alkaline Phosphatase 87 40-136 U/L Total Protein 7.6 6.4-8.2 GM/DL Albumin 4.4 3.2-4.5 GM/DL Urine Color YELLOW Urine Clarity CLEAR Urine pH 6 5-9 Urine Specific [place] 1.010 L 1.016-1.022 Urine Protein 1+ H NEGATIVE Urine Glucose (UA) NEGATIVE NEGATIVE Urine Ketones NEGATIVE NEGATIVE Urine Nitrite NEGATIVE NEGATIVE Urine Bilirubin NEGATIVE NEGATIVE Urine Urobilinogen NORMAL NORMAL MG/DL Urine Leukocyte Esterase 3+ H NEGATIVE Urine RBC (Auto) 1+ H NEGATIVE Urine RBC 2-5 H /HPF Urine WBC 25-50 H /HPF Urine Crystals NONE /LPF Urine Bacteria FEW H /HPF Urine Casts NONE /LPF Urine Mucus NEGATIVE /LPF Urine Culture Indicated YES My Orders Orders - MAXIME FULLER MD Cbc With Automated Diff (09/05/18 16:03) Comprehensive Metabolic Panel (09/05/18 16:03) Ua Culture If Indicated (09/05/18 16:03) Ed Iv/Invasive Line Start (09/05/18 16:03) Ns Iv 1000 Ml (Sodium Chloride 0.9%) (09/05/18 16:03) Ketorolac Injection (Toradol Injection) (09/05/18 16:03) Ct Abd/Pelvis Wo(Kidney Stone) (09/05/18 16:03) Urine Culture (09/05/18 16:20) Bactrim Ds Po (09/05/18 17:06) Medications Given in ED Current Medications Medications Dose Ordered Sig/Joann Route Start Time Stop Time Status Last Admin Dose Admin Sodium Chloride 1,000 ml @ 0 mls/hr Q0M ONCE IV 09/05/18 16:03 09/05/18 16:05 DC 09/05/18 16:20 1,000 MLS/HR Vital Signs/I&O 09/05/18 15:55 Temp 98.1 Pulse 97 Resp 18 B/P (MAP) 129/79 (96) Pulse Ox 98 Blood Pressure Mean: 96 Progress Progress Note : Progress Note Seen and evaluated. IV, labs, UA, CT abdomen and pelvis kidney stone protocol ordered. Normal saline 1 L bolus. Toradol 30 mg IV. Monitor patient. 1707: CT results noted. Discussed results with the patient. Does have urinary tract infection and will initiate treatment with Bactrim DS due to his allergies. Constipation discussed. Discharged home with return precautions. Patient verbalize understanding instructions and agreement with plan Diagnostic Imaging Diagonstic Imaging: CT Plain Films/CT/US/NM/MRI: abdomen, pelvis Comments [facility], [place] NAME: IZABELLA SOUZA [facility] REC#: [id number] PT STATUS: REG ER : 1945 PHYSICIAN: MAXIME FULLER MD ADMIT DATE: 09/05/18/ER Draft Date of Exam:09/05/18 CT ABD/PELVIS WO(KIDNEY STONE) PROCEDURE: CT urinary tract, rule out kidney stone. TECHNIQUE: Multiple contiguous axial images were obtained through the abdomen and pelvis without the use of intravenous contrast. Auto Exposure Controls were utilized during the CT exam to meet ALARA standards for radiation dose reduction. INDICATION: Left flank pain and low back pain. COMPARISON: CT from 03/24/2016. FINDINGS: The lung bases are clear. The heart is normal in size. The liver demonstrates no focal lesions. There are calcified granulomas in the spleen. The pancreas appears normal. The adrenal glands are normal. There are nonobstructing calculi in the kidneys, bilaterally. There is no hydronephrosis, bilaterally. The urinary bladder is decompressed. The prostate is mildly enlarged. The appendix is not seen, but no secondary findings of appendicitis are seen. There is moderate stool throughout the colon. No focal wall thickening is seen. No free fluid is seen. There is calcific atherosclerosis. No aneurysmal dilatation of the aorta is seen. There are degenerative changes in the spine with no acute osseous abnormality seen. IMPRESSION: 1. Nonobstructing calculi in the kidneys, bilaterally. No obstructing calculi or hydronephrosis is seen. 2. Mild prostatomegaly. 3. Moderate stool throughout the colon, please correlate with any history of constipation. Dictated on workstation # [id number] Dict: 09/05/18 1643 Trans: 09/05/18 1652 PJE [id number] Interpreted by: RAYNE HORNER MD Electronically signed by: Departure Impression Primary Impression: Urinary tract infection Qualified Codes: N30.00 - Acute cystitis without hematuria Additional Impressions: Constipation Qualified Codes: K59.00 - Constipation, unspecified Right low back pain Qualified Codes: M54.5 - Low back pain Disposition: 01 HOME, SELF-CARE Condition: Improved Departure-Patient Inst. Decision time for Depature: 17:08 Referrals: KAR BECKFORD MD (PCP/Family) Primary Care Physician Patient Instructions: Low Back Pain (DC), Low Back Pain in Adults, Urinary Tract Infection, Adult (DC) Add. Discharge Instructions: All discharge instructions reviewed with patient and/or family. Voiced understanding. You may take ibuprofen 600 mg every 8 hours as needed for pain. You may also take Tylenol/acetaminophen 1000 mg every 8 hours as needed for pain. Drink plenty of fluids. Follow-up with your doctor and one to 3 days for recheck and further evaluation and to discuss your prostate enlargement. You may use MiraLAX or the generic one capful twice daily for 3 days and then one capful daily thereafter to keep stools soft. You may increase or decrease the dose to keep stools in normal range. Return for worse pain, fever, vomiting, weakness, breathing problems or other concerns as needed. Scripts Sulfamethoxazole/Trimethoprim (Sulfamethoxazole-Tmp Ds Tablet) 1 Each Tablet 1 EACH PO BID, #13 TAB 0 Refills Prov: MAXIME FULLER MD 09/05/18 Copy Copies To 1: KAR BECKFORD MD, TIMOTHY D MD September 05, 2018 16:33
[2018-09-05 16:35] LABS: ALBUMIN 4.4 GM/DL (3.2-4.5); BILIRUBIN,TOTAL 0.6 MG/DL (0.1-1.0); CALCIUM 9.9 MG/DL (8.5-10.1); CREATININE SERUM 1.27 MG/DL (0.60-1.30); POTASSIUM 4.4 MMOL/L (3.6-5.0); TOTAL PROTEIN 7.6 GM/DL (6.4-8.2)
[2018-09-05 16:38] LABS: BACTERIA,URINE FEW /HPF; WBC,URINE 25-50 /HPF
--- NOTE | 2018-09-05 16:52 | Diagnostic Imaging Report ---
PROCEDURE: CT urinary tract, rule out kidney stone. TECHNIQUE: Multiple contiguous axial images were obtained through the abdomen and pelvis without the use of intravenous contrast. Auto Exposure Controls were utilized during the CT exam to meet ALARA standards for radiation dose reduction. INDICATION: Left flank pain and low back pain. COMPARISON: CT from 03/24/2016. FINDINGS: The lung bases are clear. The heart is normal in size. The liver demonstrates no focal lesions. There are calcified granulomas in the spleen. The pancreas appears normal. The adrenal glands are normal. There are nonobstructing calculi in the kidneys, bilaterally. There is no hydronephrosis, bilaterally. The urinary bladder is decompressed. The prostate is mildly enlarged. The appendix is not seen, but no secondary findings of appendicitis are seen. There is moderate stool throughout the colon. No focal wall thickening is seen. No free fluid is seen. There is calcific atherosclerosis. No aneurysmal dilatation of the aorta is seen. There are degenerative changes in the spine with no acute osseous abnormality seen. IMPRESSION: 1. Nonobstructing calculi in the kidneys, bilaterally. No obstructing calculi or hydronephrosis is seen. 2. Mild prostatomegaly. 3. Moderate stool throughout the colon, please correlate with any history of constipation. Dictated by: Dictated on workstation # [id number]
[2018-09-05] MEDS ORDERED: TRIM/SULFAMETH 160/800 (SEPTRA DS) TAB PO STA (17:06)
[2018-09-05] MEDS ORDERED: SULF-222 PO (17:10)
[2018-09-05 17:20] VITALS: BP 129/79
== END 2018-09-05 17:26 | disposition home or self-care (01) ==
LOC: EDUNIT# 15:55 → ER 15:56
DX: N39.0 Urinary tract infection, site not specified (principal); K59.00 Constipation, unspecified; M54.5 Low back pain; E78.00 Pure hypercholesterolemia, unspecified; I10 Essential (primary) hypertension; F17.210 Nicotine dependence, cigarettes, uncomplicated; Z90.89 Acquired absence of other organs; Z90.49 Acquired absence of other specified parts of digestive tract; Z88.0 Allergy status to penicillin; Z88.1 Allergy status to other antibiotic agents; Z79.82 Long term (current) use of aspirin
CPT/HCPCS: 36415; 74176; 80053; 81000; 85025; 87088; 96361; 96374

== ENCOUNTER 2019-08-22 15:29 | Outpatient (RCR) | payer OTHER, MEDICARE ==
[2019-08-01 11:09] LABS: BASOPHILS % (AUTO) 1 % (0-10); EOSINOPHILS # (AUTO) 0.3 10^3/uL (0.0-0.3); EOSINOPHILS % (AUTO) 4 % (0-10); HEMATOCRIT 40 % (40-54); HEMOGLOBIN 13.5 G/DL (13.3-17.7); LYMPHOCYTES # (AUTO) 1.7 X 10^3 (1.0-4.0); LYMPHOCYTES % (AUTO) 23 % (12-44); MEAN CORPUSCULAR HEMOGLOBIN 30 PG (25-34); MEAN CORPUSCULAR HGB CONC 34 G/DL (32-36); MEAN CORPUSCULAR VOLUME 90 FL (80-99); MONOCYTES # (AUTO) 0.5 X 10^3 (0.0-1.0); MONOCYTES % (AUTO) 7 % (0-12); NEUTROPHILS # (AUTO) 4.9 X 10^3 (1.8-7.8); NEUTROPHILS % (AUTO) 67 % (42-75); PLATELET COUNT 242 10^3/uL (130-400); RED CELL DISTRIBUTION WIDTH 14.3 % (10.0-14.5); WHITE BLOOD COUNT 7.4 10^3/uL (4.3-11.0)
[2019-08-01 11:33] LABS: ALANINE AMINOTRANSFERASE 17 U/L (0-55); ALBUMIN 4.2 GM/DL (3.2-4.5); ALKALINE PHOSPHATASE 78 U/L (40-136); BILIRUBIN,TOTAL 0.4 MG/DL (0.1-1.0); BUN/CREATININE RATIO 13; CALCIUM 9.2 MG/DL (8.5-10.1); CARBON DIOXIDE 23 MMOL/L (21-32); CHLORIDE 109 MMOL/L (98-107); CREATININE SERUM 1.08 MG/DL (0.60-1.30); GFR ESTIMATED > 60; GLUCOSE 116 MG/DL (70-105); POTASSIUM 4.2 MMOL/L (3.6-5.0); SODIUM 140 MMOL/L (135-145); TOTAL PROTEIN 7.2 GM/DL (6.4-8.2)
[2019-08-09 15:51] LABS: IMMUNOFIX PATH REPORT NUMBER Complete (Complete)
[~2019-08-22 15:29] MED LIST changes: +SIMV10TA26 PO; -SIMV10TA3 PO; +SULF-222 PO; -TRAM50TA2 PO; +TRM50T PO
== END 2019-10-30 | disposition still patient (30) ==
LOC: ONC 15:29
PROVIDERS: ATTEND Internal Medicine Hematology & Oncology
DX: D47.2 Monoclonal gammopathy (principal); E78.5 Hyperlipidemia, unspecified; F17.210 Nicotine dependence, cigarettes, uncomplicated; Z79.82 Long term (current) use of aspirin; Z79.899 Other long term (current) drug therapy
CPT/HCPCS: 80053; 83883; 84155; 84165; 85025; 86334; 99213

== ENCOUNTER → 2020-01-24 | Outpatient (CLI) | payer OTHER, MEDICARE ==
--- NOTE | 2020-01-24 10:07 | Diagnostic Imaging Report ---
CLINICAL INDICATION: Patient pleuritic chest pain. EXAM: Chest x-ray PA and lateral views. COMPARISON: CT scan of the chest, abdomen and pelvis with contrast dated 03/24/2016. FINDINGS: Lungs are clear. There is no pleural effusion or pneumothorax. Pulmonary vasculature and cardiac silhouettes are within normal limits. There are mildly hypertrophic spurs seen throughout the thoracic spine. IMPRESSION: There is no radiographic evidence of acute cardiopulmonary process. Dictated by: Dictated on workstation # [id number]
== END ==
LOC: RAD 09:15
PROVIDERS: ATTEND Nurse Practitioner
DX: R07.81 Pleurodynia (principal)
CPT/HCPCS: 71046

== ENCOUNTER → 2020-06-11 | Outpatient (CLI) | payer OTHER, MEDICARE ==
--- NOTE | 2020-06-11 11:00 | Diagnostic Imaging Report ---
EXAMINATION: CT Chest without contrast (lung screening). TECHNIQUE: Multiple contiguous axial images were obtained through the chest without the use of intravenous contrast according to lung cancer screening protocol. All CT scans use one or more of the following dose optimizing techniques: automated exposure control, MA and/or KvP adjustment based on a patient size and exam type, or iterative reconstruction. HISTORY: 50 pack year history of smoking. COMPARISON: None available. FINDINGS: There is no edema or pneumonia. No pleural effusion. No pneumothorax. There is a 5.5 mm average diameter left lower lobe pulmonary nodule peripherally. There are a few fissural lymph nodes along the major fissure measuring less than 5 mm in average diameter. There is no axillary or supraclavicular lymphadenopathy. There is no mediastinal lymphadenopathy. Heart size is normal. There are mild coronary artery calcifications. No pericardial effusion. Aorta is normal in caliber. Limited views of the upper abdomen are unremarkable. There are no suspicious osseus lesions. There is a mild T5 compression fracture which is likely chronic. IMPRESSION: 1. No suspicious pulmonary nodules. LUNG-RADS CATEGORY: 2 MODIFIER: None. Dictated by: Dictated on workstation # [id number]
== END ==
LOC: RAD 10:39
PROVIDERS: ATTEND Family Medicine
DX: Z12.2 Encounter for screening for malignant neoplasm of respiratory organs (principal); F17.210 Nicotine dependence, cigarettes, uncomplicated
CPT/HCPCS: 71271

== ENCOUNTER → 2020-08-06 | Outpatient (CLI) | payer OTHER, MEDICARE | LOC: ONC 10:24 | PROVIDERS: ATTEND Internal Medicine Hematology & Oncology | DX: D47.2 Monoclonal gammopathy (principal); E78.00 Pure hypercholesterolemia, unspecified; E78.5 Hyperlipidemia, unspecified ==

== ENCOUNTER → 2020-08-06 | Outpatient (CLI) | payer OTHER, MEDICARE | END | disposition home or self-care (01) | LOC: ONC 10:04 | PROVIDERS: ATTEND Internal Medicine Hematology & Oncology | DX: D47.2 Monoclonal gammopathy (principal); E78.2 Mixed hyperlipidemia; Z72.0 Tobacco use ==

== ENCOUNTER 2020-08-20 01:53 | Outpatient (RCR) | payer OTHER, MEDICARE ==
[2020-08-06 10:32] LABS: BASOPHILS # (AUTO) 0.1 10^3/uL (0.0-0.1); BASOPHILS % (AUTO) 2 % (0-10); EOSINOPHILS # (AUTO) 0.3 10^3/uL (0.0-0.3); EOSINOPHILS % (AUTO) 4 % (0-10); HEMATOCRIT 40 % (40-54); HEMOGLOBIN 13.2 g/dL (13.3-17.7); LYMPHOCYTES # (AUTO) 1.8 10^3/uL (1.0-4.0); LYMPHOCYTES % (AUTO) 26 % (12-44); MEAN CORPUSCULAR HEMOGLOBIN 30 pg (25-34); MEAN CORPUSCULAR HGB CONC 33 g/dL (32-36); MEAN CORPUSCULAR VOLUME 92 fL (80-99); MEAN PLATELET VOLUME 10.6 fL (9.0-12.2); MONOCYTES # (AUTO) 0.6 10^3/uL (0.0-1.0); MONOCYTES % (AUTO) 9 % (0-12); NEUTROPHILS # (AUTO) 4.1 10^3/uL (1.8-7.8); NEUTROPHILS % (AUTO) 60 % (42-75); PLATELET COUNT 244 10^3/uL (130-400); WHITE BLOOD COUNT 6.9 10^3/uL (4.3-11.0)
[2020-08-06 10:56] LABS: ALANINE AMINOTRANSFERASE 18 U/L (0-55); ALBUMIN 4.1 GM/DL (3.2-4.5); ALKALINE PHOSPHATASE 72 U/L (40-136); BILIRUBIN,TOTAL 0.5 MG/DL (0.1-1.0); BUN/CREATININE RATIO 13; CALCIUM 9.3 MG/DL (8.5-10.1); CARBON DIOXIDE 22 MMOL/L (21-32); CHLORIDE 107 MMOL/L (98-107); GFR ESTIMATED > 60; GLUCOSE 113 MG/DL (70-105); SODIUM 140 MMOL/L (135-145)
[2020-10-03] MEDS ORDERED: LOSA50TA63 PO (09:45)
[2020-10-03] MEDS ORDERED: ASPI-999 PO (09:45)
== END 2020-11-04 | disposition home or self-care (01) ==
LOC: ONC 01:53
PROVIDERS: ATTEND Internal Medicine Hematology & Oncology
DX: D47.2 Monoclonal gammopathy (principal); E78.5 Hyperlipidemia, unspecified; E04.1 Nontoxic single thyroid nodule; Z72.0 Tobacco use; E78.00 Pure hypercholesterolemia, unspecified; Z79.899 Other long term (current) drug therapy; Z79.82 Long term (current) use of aspirin
CPT/HCPCS: 80053; 83883; 84165; 85025; G0463; 84155; 99213

== ENCOUNTER 2020-10-02 06:28 | Outpatient (CLI) | payer OTHER, MEDICARE ==
[~2020-10-02] VITALS: Ht 175.3 cm; Wt 74.5 kg
[2020-10-03] MEDS ORDERED: LOSA50TA63 PO (09:45)
[2020-10-03] MEDS ORDERED: ASPI-999 PO (09:45)
== END 2020-10-03 09:47 | disposition home or self-care (01) ==
LOC: PREOP 06:28
PROVIDERS: ATTEND Specialist
DX: Z01.818 Encounter for other preprocedural examination (principal)

== ENCOUNTER 2020-10-05 08:54 | Day surgery (SDC) | payer OTHER, MEDICARE ==
[~2020-10-05] VITALS: Ht 175.3 cm; Wt 74.5 kg
[~2020-10-05 08:54] MED LIST changes: +ASPI-999 PO; +LOSA50TA63 PO
[2020-10-05] MEDS ORDERED: TROPICAMIDE 1% OPH SOLN (MYDRIACYL) 15 ML BTL OU PRN (09:15)
[2020-10-05] MEDS ORDERED: PHENYLEPHRINE 10% OPHTH (NEO-SYN) 5 ML BTL OU PRN (09:15)
[2020-10-05] MEDS: TETRACAINE 0.5% OPHTH SOLN 4 ML BTL (SINGLE DOSE ONLY) OU PRN ×3 (09:22→09:30)
[2020-10-05 09:32] VITALS: BP 152/67
--- NOTE | 2020-10-05 10:32 | Ophthalmologist Pre-Op Note ---
Pre-Operative Progress Note H&P Reviewed The H&P was reviewed, patient examined and no changes noted. Date H&P Reviewed: Oct 05, 2020 Time H&P Reviewed: 10:00 Pre-Op Dx Secondary Cataract, Right Eye TAMERA ANAND MD Oct 05, 2020 10:32
--- NOTE | 2020-10-05 10:34 | Ophthalmology Operative Report ---
YAG Capsulotomy PREOPERATIVE DIAGNOSIS: Secondary Cataract Left Eye POSTOPERATIVE DIAGNOSIS: Secondary Cataract Left Eye PROCEDURE: YAG Capsulotomy, left eye SURGEON: Isaac Anand ANESTHESIA: Topical anesthesia COMPLICATIONS: None ESTIMATED BLOOD LOSS: Minimal DESCRIPTION OF PROCEDURE: After proper informed consent was obtained, the patient's, a 75 male left eye received one drop of Tropicamide and one drop of Tetracaine. The patient was then placed at the YAG laser and using a power of [3.8 ] millijoules and [14 ] bursts were used to fashion a central capsulotomy. The patient tolerated the procedure well without complications. ISAAC ANAND MD Oct 05, 2020 10:33
== END 2020-10-05 10:12 | disposition home or self-care (01) ==
LOC: SDC 08:54
PROVIDERS: ATTEND Specialist
DX: H26.492 Other secondary cataract, left eye (principal); F17.200 Nicotine dependence, unspecified, uncomplicated; Z79.899 Other long term (current) drug therapy; Z90.89 Acquired absence of other organs

== ENCOUNTER 2020-12-23 11:18 | Emergency (ER) | payer OTHER, MEDICARE ==
[~2020-12-23] VITALS: Ht 175.2 cm; Wt 74.8 kg
[2020-12-23 11:43] VITALS: BP 150/80
[2020-12-23] MEDS ORDERED: TRIA10.8 NS (11:47)
[2020-12-23] MEDS ORDERED: NFIPRATRNS NS (11:47)
--- NOTE | 2020-12-23 11:47 | ED EENT ---
History of Present Illness General Chief Complaint: Nasal Problems Stated Complaint: NASAL DRAINAGE Source: patient Exam Limitations: no limitations History of Present Illness Date Seen by Provider: Dec 23, 2020 Time Seen by Provider: 11:44 Initial Comments 2-day history of nasal drainage and postnasal drip. No fever no chills no cough no shortness of breath. Has had both Moderna vaccinations. He has tried Claritin without relief. Timing/Duration: abrupt Severity: moderate Location: nose Associated Symptoms: cough Allergies and Home Medications Allergies Coded Allergies: Penicillins (Verified Allergy, Unknown, 10/01/17) cephalexin (Verified Allergy, Unknown, 05/01/15) Home Medications Aspirin 81 Mg Tab.chew, 81 MG PO DAILY, (Reported) Losartan Potassium Unknown Strength Tablet, 1 TAB PO DAILY, (Reported) Simvastatin 10 Mg Tablet, 10 MG PO HS, (Reported) Patient Home Medication List Home Medication List Reviewed: Yes Review of Systems Review of Systems Constitutional: see HPI Eyes: No Symptoms Reported Ears: No Symptoms Reported Nose: see HPI, other (rhinorrhea) Mouth: no symptoms reported Throat: no symptoms reported Respiratory: no symptoms reported Cardiovascular: no symptoms reported Musculoskeletal: no symptoms reported Skin: no symptoms reported Past Xjvtdkx-Iknfjh-Jxgtbl Hx Past Medical History Surgeries: Yes (THROAT) Appendectomy, Tonsillectomy Respiratory: No Cardiac: Yes High Cholesterol, Hypertension Neurological: No Gastrointestinal: No Musculoskeletal: No Endocrine: No Cancer: No Psychosocial: No Integumentary: No Physical Exam Height, Weight, BMI Height: 5'9.00" Weight: 174lbs. 0.0oz. 78.426050ff; BMI Method:Stated General Appearance: WD/WN, no apparent distress Eyes: bilateral eye normal inspection, bilateral eye PERRL, bilateral eye EOMI Ears: bilateral ear auricle normal, bilateral ear canal normal, bilateral ear TM normal Nose: normal inspection, discharge Mouth/Throat: normal mouth inspection, pharynx normal Neck: non-tender, full range of motion Respiratory: normal breath sounds, no respiratory distress, no accessory muscle use Gastrointestinal: normal bowel sounds, non tender Neurologic/Psychiatric: alert, normal mood/affect, oriented x 3 Skin: normal color, warm/dry Progress/Results/Core Measures Results/Orders My Orders Orders - TOO FUENTES APRN Dexamethasone Injection (Decadron Inje (12/23/20 11:45) Departure Impression Primary Impression: Rhinorrhea Disposition: 01 HOME, SELF-CARE Condition: Stable Departure-Patient Inst. Decision time for Depature: 11:45 Referrals: ZAY HAMMOND MD (PCP) Primary Care Physician Patient Instructions: Seasonal Allergies ED Add. Discharge Instructions: 1. Return to ER for any concerns 2. Follow up with your doctor next week. All discharge instructions reviewed with patient and/or family. Voiced understanding. Scripts Ipratropium Malone (Ipratropium Malone) 15 Ml Naspr 1 SPRAY NS BID, #1 EA Prov: TOO FUENTES CASE FINISHER 12/23/20 Triamcinolone Acetonide (Nasacort) 10.8 Ml [place] 10.8 ML NS BID, #1 EA Prov: TOO FUENTES CASE FINISHER 12/23/20 TOO FUENTES CASE FINISHER Dec 23, 2020 11:47
== END 2020-12-23 12:11 | disposition home or self-care (01) ==
LOC: EDUNIT# 11:18 → ER 11:21
DX: J34.89 Other specified disorders of nose and nasal sinuses (principal); I10 Essential (primary) hypertension; E78.00 Pure hypercholesterolemia, unspecified; Z79.82 Long term (current) use of aspirin; Z79.899 Other long term (current) drug therapy
CPT/HCPCS: 99284

== ENCOUNTER 2021-08-19 08:59 | Outpatient (RCR) | payer OTHER, MEDICARE ==
[~2021-08-19 08:59] MED LIST changes: +NFIPRATRNS NS; +TRIA10.8 NS
[2021-08-19 09:15] LABS: BASOPHILS # (AUTO) 0.1 10^3/uL (0.0-0.1); BASOPHILS % (AUTO) 1 % (0-10); EOSINOPHILS # (AUTO) 0.6 10^3/uL (0.0-0.3); EOSINOPHILS % (AUTO) 6 % (0-10); HEMATOCRIT 41 % (40-54); HEMOGLOBIN 13.5 g/dL (13.3-17.7); LYMPHOCYTES % (AUTO) 22 % (12-44); MEAN CORPUSCULAR HEMOGLOBIN 31 pg (25-34); MEAN CORPUSCULAR HGB CONC 33 g/dL (32-36); MEAN CORPUSCULAR VOLUME 92 fL (80-99); MEAN PLATELET VOLUME 11.3 fL (9.0-12.2); MONOCYTES # (AUTO) 0.7 10^3/uL (0.0-1.0); MONOCYTES % (AUTO) 7 % (0-12); NEUTROPHILS # (AUTO) 5.6 10^3/uL (1.8-7.8); NEUTROPHILS % (AUTO) 63 % (42-75); PLATELET COUNT 228 10^3/uL (130-400)
[2021-08-19 09:30] LABS: ALBUMIN 4.2 GM/DL (3.2-4.5); BILIRUBIN,TOTAL 0.4 MG/DL (0.1-1.0); CALCIUM 9.8 MG/DL (8.5-10.1); CREATININE SERUM 1.27 MG/DL (0.60-1.30); POTASSIUM 4.6 MMOL/L (3.6-5.0); TOTAL PROTEIN 7.4 GM/DL (6.4-8.2)
== END 2021-08-31 | disposition home or self-care (01) ==
LOC: ONC 08:59
PROVIDERS: ATTEND Internal Medicine
DX: C44.90 Unspecified malignant neoplasm of skin, unspecified (principal); I10 Essential (primary) hypertension; E78.5 Hyperlipidemia, unspecified; F17.210 Nicotine dependence, cigarettes, uncomplicated
CPT/HCPCS: 80053; 82784 ×3; 83883; 84165; 85025; G0463; 36415; 84155; 99213

== ENCOUNTER → 2022-04-21 | Outpatient (CLI) | payer OTHER, MEDICARE ==
--- NOTE | 2022-04-21 16:39 | Diagnostic Imaging Report ---
PROCEDURE: US carotid duplex, bilateral. TECHNIQUE: Multiple real-time grayscale images were obtained over the carotid arteries in various projections, bilaterally. Additional spectral analysis and color Doppler duplex images were also obtained. INDICATION: Carotid bruit and dizziness. There is mild plaquing bilaterally. The common carotid and internal carotid arteries show normal velocities without velocity elevation or stenosis. There is some velocity elevation in the external carotid arteries. Both vertebral arteries demonstrate antegrade flow. IMPRESSION: No hemodynamically significant stenosis is identified. Parameters based on the consensus panel Johnson-Scale and Doppler ultrasound criteria published March 2003, Radiology, Volume 229. DOPPLER (peak systolic velocity M/S Right Left CCA .94 1.07 ICA Proximal .81 1.11 ICA Mid .69 1.14 ICA Distal .93 1.20 RATIO .99 1.12 ECA 2.24 2.81 VERT .57 .51 Dictated by: Dictated on workstation # [id number]
== END ==
LOC: RAD 12:30
PROVIDERS: ATTEND Nurse Practitioner Family
DX: R09.89 Other specified symptoms and signs involving the circulatory and respiratory systems (principal); R42 Dizziness and giddiness
CPT/HCPCS: 93880

== ENCOUNTER 2022-04-27 09:59 | Emergency (ER) | payer OTHER, MEDICARE ==
[~2022-04-27] VITALS: Ht 175 cm; Wt 76.0 kg
[2022-04-27 10:03] VITALS: BP 128/70
[2022-04-27] MEDS ORDERED: ROSU20TA32 (10:08)
[2022-04-27] MEDS ORDERED: tamsulosin (10:08)
--- NOTE | 2022-04-27 10:16 | ED Cough/URI ---
General Chief Complaint: Cough/Cold/Flu Symptoms Stated Complaint: CONGESTION/SINUS DRAINAGE Source: patient Exam Limitations: no limitations History of Present Illness Date Seen by Provider: Apr 27, 2022 Time Seen by Provider: 10:05 Initial Comments 77-year-old male presents the emergency department today for nasal drainage causing him to cough. Symptoms started yesterday afternoon and have been progressive through the night causing him to not really be able to sleep very well. No chest pain or shortness of breath. No fevers or chills. He states several people at work and been sick with similar symptoms. Allergies and Home Medications Allergies Coded Allergies: Penicillins (Verified Allergy, Unknown, 10/01/17) cephalexin (Verified Allergy, Unknown, 05/01/15) Patient Home Medication List Home Medication List Reviewed: Yes Aspirin (Aspirin) 81 Mg Tab.chew, 81 MG PO DAILY, (Reported) Entered as Reported by: SALLY QUEEN on 10/03/20 0945 Last Action: Last Taken Edited Losartan Potassium (Losartan Potassium) Unknown Strength Tablet, 1 TAB PO DAILY, (Reported) Entered as Reported by: SALLY QUEEN on 10/03/2045 Last Action: Last Taken Edited Rosuvastatin Calcium (Rosuvastatin Calcium) 20 Mg Tablet, (Reported) Entered as Reported by: SWAPNA BADILLO on 04/27/22 100 Last Action: New Order [tamsulosin] , (Reported) Entered as Reported by: SWAPNA BADILLO on 04/27/22 1008 Last Action: New Order Discontinued Medications Ipratropium Bertha (Ipratropium Bertha) 15 Ml Naspr, 1 SPRAY NS BID Discontinued Reason: No Longer Taking Prescribed by: TOO FUENTES on 12/23/20 114 Last Action: Discontinued Simvastatin (Simvastatin) 10 Mg Tablet, 10 MG PO HS, (Reported) Discontinued Reason: No Longer Taking Entered as Reported by: SALLY QUEEN on 10/01/17 0841 Last Action: Discontinued Triamcinolone Acetonide (Nasacort) 10.8 Ml [place], 10.8 ML NS BID Discontinued Reason: No Longer Taking Prescribed by: TOO FUENTES on 12/23/201146 Last Action: Discontinued Review of Systems Review of Systems Constitutional: no symptoms reported EENTM: nose congestion Respiratory: cough Cardiovascular: no symptoms reported Gastrointestinal: no symptoms reported Genitourinary: no symptoms reported Musculoskeletal: no symptoms reported Skin: no symptoms reported Psychiatric/Neurological: No Symptoms Reported Hematologic/Lymphatic: No Symptoms Reported Immunological/Allergic: no symptoms reported Past Qhnahcn-Qxbuxo-Uenegg Hx Patient Social History Tobacco Use?: Yes Substance use?: No Alcohol Use?: Yes Alcohol Frequency: Once in a while Pt feels they are or have been: No Immunizations Up To Date First/Initial COVID19 Vaccinat: X3 Past Medical History Surgery/Hospitalization HX: APPENDECTOMY, T/A, HIGH CHOLESTEROL, HTN, BPH Surgeries: Yes (THROAT) Appendectomy, Tonsillectomy Respiratory: No Cardiac: Yes High Cholesterol, Hypertension Neurological: No Gastrointestinal: No Musculoskeletal: No Endocrine: No Cancer: No Psychosocial: No Integumentary: No Family Medical History Reviewed Nursing Family Hx No Pertinent Family Hx Physical Exam Vital Signs - First Documented Capillary Refill : Height: 5'9.00" Weight: 174lbs. 0.0oz. 78.227319qf; 24.00 BMI Method:Stated General Appearance: WD/WN, no apparent distress Eyes: Bilateral Eye Normal Inspection, Bilateral Eye PERRL, Bilateral Eye EOMI HEENT: PERRL/EOMI, normal ENT inspection, TMs normal, pharynx normal Neck: non-tender, supple Respiratory: chest non-tender, lungs clear, normal breath sounds, no respiratory distress, no accessory muscle use Cardiovascular: regular rate, rhythm, no edema, no murmur Gastrointestinal: normal bowel sounds, non tender, soft, no organomegaly Extremities: normal range of motion, non-tender, normal inspection Skin: normal color, warm/dry Lymphatic: no adenopathy Progress/Results/Core Measures Suspected Sepsis SIRS Temperature: Pulse: Respiratory Rate: Blood Pressure / Mean: Results/Orders Vital Signs/I&O 04/27/22 04/27/22 10:03 10:03 Temp 37.0 Pulse 92 Resp 18 B/P (MAP) 128/70 (89) Pulse Ox 97 O2 Delivery Room Air Room Air Capillary Refill : Departure Communication (Admissions) Patient is hemodynamically stable no focal exam findings. Postnasal drip causing him to cough. Treatment with Sudafed. Discharged in stable condition Impression Primary Impression: Nasal congestion Disposition: 01 HOME, SELF-CARE Condition: Stable Departure-Patient Inst. Referrals: ZAY HAMMOND MD (PCP/Family) Primary Care Physician Patient Instructions: Cough, Runny Nose, and the Common Cold Add. Discharge Instructions: Use eirm-lyo-kgejfub Sudafed as needed which will likely help to dry up nasal congestion and intermittent help with your cough. No indication for antibiotics or other testing at this time. Follow-up with primary doctor should your symptoms persist. Return to the emergency department for any severe concerns. All discharge instructions reviewed with patient and/or family. Voiced understanding. TRUONG BRAGG DO Apr 27, 2022 10:16
[2022-04-27] MEDS ORDERED: PSEUDOEPHEDRINE HCL 30 MG (SUDAFED) TAB PO ONE (10:30)
== END 2022-04-27 10:29 | disposition home or self-care (01) ==
LOC: EDUNIT# 09:59 → ER 10:01
DX: R09.81 Nasal congestion (principal); R05.9 Cough, unspecified
CPT/HCPCS: 99283

== ENCOUNTER 2022-08-19 09:02 | Outpatient (RCR) | payer OTHER, MEDICARE ==
[2022-08-11 10:15] LABS: BASOPHILS # (AUTO) 0.1 10^3/uL (0.0-0.1); BASOPHILS % (AUTO) 1 % (0-10); EOSINOPHILS # (AUTO) 0.4 10^3/uL (0.0-0.3); EOSINOPHILS % (AUTO) 6 % (0-10); HEMATOCRIT 40 % (40-54); HEMOGLOBIN 13.5 g/dL (13.3-17.7); LYMPHOCYTES # (AUTO) 2.2 10^3/uL (1.0-4.0); LYMPHOCYTES % (AUTO) 28 % (12-44); MEAN CORPUSCULAR HEMOGLOBIN 31 pg (25-34); MEAN CORPUSCULAR HGB CONC 34 g/dL (32-36); MEAN CORPUSCULAR VOLUME 91 fL (80-99); MONOCYTES # (AUTO) 0.7 10^3/uL (0.0-1.0); MONOCYTES % (AUTO) 8 % (0-12); NEUTROPHILS # (AUTO) 4.5 10^3/uL (1.8-7.8); NEUTROPHILS % (AUTO) 57 % (42-75); PLATELET COUNT 219 10^3/uL (130-400); WHITE BLOOD COUNT 7.8 10^3/uL (4.3-11.0)
[2022-08-11 10:31] LABS: BILIRUBIN,TOTAL 0.4 MG/DL (0.1-1.0); CALCIUM 9.1 MG/DL (8.5-10.1); CREATININE SERUM 1.31 MG/DL (0.60-1.30); POTASSIUM 4.1 MMOL/L (3.6-5.0); TOTAL PROTEIN 7.1 GM/DL (6.4-8.2)
[~2022-08-19 09:02] MED LIST changes: +ROSU20TA32; +tamsulosin
== END 2022-08-31 | disposition home or self-care (01) ==
LOC: ONC 09:02
PROVIDERS: ATTEND Internal Medicine Hematology & Oncology
DX: D47.2 Monoclonal gammopathy (principal); E78.5 Hyperlipidemia, unspecified; E78.00 Pure hypercholesterolemia, unspecified; Z72.0 Tobacco use
CPT/HCPCS: 36415; 80053; 83883; 84155; 84165; 85025

== ENCOUNTER 2023-02-22 04:15 | Emergency (ER) | payer MEDICARE, OTHER ==
[~2023-02-22] VITALS: Ht 175.3 cm; Wt 74.4 kg
[~2023-02-22 04:15] MED LIST changes: -ROSU20TA32; +ROSU20TA73
--- NOTE | 2023-02-22 05:05 | ED Headache ---
General Chief Complaint: Head/Cervical Problems Stated Complaint: DE JESUS X 2 DAYS Source: patient (ADONIS SYED DO) History of Present Illness Date Seen by Provider: Feb 22, 2023 Time Seen by Provider: 04:50 Initial Comments PT ARRIVES VIA POV FROM HOME WITH C/O RIGHT SIDED HEADACHE AND BLURRY VISION IN RIGHT EYE FOR THE LAST COUPLE OF DAYS HEADACHE IS TO HIS ENTIRE RIGHT SIDE OF HIS HEAD. NO PARESTHESIAS OR MOTOR DEFICITS NO NECK PAIN NO DIZZINESS NO NAUSEA/VOMITING NO LIGHT SENSITIVITY NO FEVER OR RECENT ILLNESS DOES NOT NORMALLY GET HEADACHES HE HAS NOT TAKEN ANYTHING FOR HEADACHE SYMPTOMS NO DIFFERENT NOW, HAS NOT SOUGHT CARE UNTIL NOW. PT HAS HISTORY OF HTN AND HYPERLIPIDEMIA PT IS ACTIVE SMOKER, DENIES ETOH OR DRUG USE PT HAS HAD PRIOR BILATERAL CATARACT SURGERY IN THE PAST. PCP: DR. HAMMOND (ADONIS SYED DO) Allergies and Home Medications Allergies Coded Allergies: Penicillins (Verified Allergy, Unknown, 10/01/17) cephalexin (Verified Allergy, Unknown, 05/01/15) Patient Home Medication List Aspirin (Aspirin) 81 Mg Tab.chew, 81 MG PO DAILY, (Reported) Entered as Reported by: SALLY QUEEN on 10/03/2045 Azelastine HCl (Azelastine HCl) 137 Mcg (0.1 %) Frostproof.pump, 137 MCG NS BID Prescribed by: ADONIS SYED on 02/22/23615 Doxycycline Hyclate (Doxycycline Hyclate) 100 Mg Tablet, 100 MG PO BID Prescribed by: ADONIS SYED on 02/22/23615 Fluticasone Propionate (Flonase Allergy Relief) 50 Mcg/Actuation Frostproof.susp, 2 SPRAY NS DAILY Prescribed by: ADONIS SYED on 02/22/23615 Losartan Potassium (Losartan Potassium) Unknown Strength Tablet, 1 TAB PO DAILY, (Reported) Entered as Reported by: SALLY QUEEN on 10/03/20944 Rosuvastatin Calcium (Rosuvastatin Calcium) 20 Mg Tablet, (Reported) Entered as Reported by: SWAPNA BADILLO on 04/27/221007 [tamsulosin] , (Reported) Entered as Reported by: SWAPNA BADILLO on 04/27/221007 Review of Systems Review of Systems Constitutional: no symptoms reported Eyes: See HPI Ears, Nose, Mouth, Throat: no symptoms reported Respiratory: no symptoms reported Cardiovascular: no symptoms reported Gastrointestinal: no symptoms reported Genitourinary: no symptoms reported Musculoskeletal: no symptoms reported Skin: no symptoms reported Psychiatric/Neurological: See HPI (ADONIS SYED DO) Past Pnxywqe-Idusji-Xiglfm Hx Patient Social History Tobacco Use?: Yes Tobacco type used: Cigarettes Smoking Status: Current Everyday Smoker Substance use?: No Alcohol Use?: No (ADONIS SYED DO) Immunizations Up To Date First/Initial COVID19 Vaccinat: X3 (ADONIS SYED DO) Past Medical History Surgery/Hospitalization HX: APPENDECTOMY, T/A, HIGH CHOLESTEROL, HTN, BPH Surgeries: Yes (THROAT) Adenoidectomy, Appendectomy, Tonsillectomy Respiratory: No Cardiac: Yes High Cholesterol, Hypertension Neurological: No Genitourinary: Yes Prostate Problems Gastrointestinal: No Musculoskeletal: No Endocrine: No Cancer: No Psychosocial: No Integumentary: No (ADONIS SYED DO) Family Medical History No Pertinent Family Hx (ADONIS SYED DO) Physical Exam Vital Signs Vital Signs - First Documented 02/22/23 04:43 Temp 36.5 Pulse 70 Resp 16 B/P (MAP) 188/88 (121) Pulse Ox 96 O2 Delivery Room Air (RENETTA KAMINSKI MD) Vital Signs Capillary Refill : (ADONIS SYED DO) Height, Weight, BMI Height: 5'9.00" Weight: 174lbs. 0.0oz. 78.973726cu; 24.00 BMI Method:Stated General Appearance: WD/WN, no apparent distress HEENT: PERRL/EOMI, normal ENT inspection, TMs normal; No photophobia Neck: non-tender, full range of motion, supple, normal inspection Cardiovascular: regular rate, rhythm, no murmur Respiratory: normal breath sounds, no respiratory distress, no accessory muscle use Gastrointestinal: non tender, soft Back: normal inspection Extremities: normal inspection, normal capillary refill Psychiatric: alert, oriented x 3 Crainal Nerves: normal hearing, normal speech, PERRL Coordination/Gait: normal gait Motor/Sensory: no motor deficit, no sensory deficit Skin: normal color, warm/dry; No rash (ADONIS SYED DO) Progress/Results/Core Measures Results/Orders Lab Results Laboratory Tests Test 02/22/23 05:08 02/22/23 05:10 Range/Units Influenza Type A (RT-PCR) Not Detected Not Detecte Influenza Type B (RT-PCR) Not Detected Not Detecte SARS-CoV-2 RNA (RT-PCR) Not Detected Not Detecte White Blood Count 8.5 4.3-11.0 10^3/uL Red Blood Count 4.33 4.30-5.52 10^6/uL Hemoglobin 13.4 13.3-17.7 g/dL Hematocrit 40 40-54 % Mean Corpuscular Volume 92 80-99 fL Mean Corpuscular Hemoglobin 31 25-34 pg Mean Corpuscular Hemoglobin Concent 34 32-36 g/dL Red Cell Distribution Width 14.0 10.0-14.5 % Platelet Count 174 130-400 10^3/uL Mean Platelet Volume 10.8 9.0-12.2 fL Immature Granulocyte % (Auto) 0 % Neutrophils (%) (Auto) 60 42-75 % Lymphocytes (%) (Auto) 26 12-44 % Monocytes (%) (Auto) 9 0-12 % Eosinophils (%) (Auto) 4 0-10 % Basophils (%) (Auto) 1 0-10 % Neutrophils # (Auto) 5.1 1.8-7.8 10^3/uL Lymphocytes # (Auto) 2.2 1.0-4.0 10^3/uL Monocytes # (Auto) 0.7 0.0-1.0 10^3/uL Eosinophils # (Auto) 0.4 H 0.0-0.3 10^3/uL Basophils # (Auto) 0.1 0.0-0.1 10^3/uL Immature Granulocyte # (Auto) 0.0 0.0-0.1 10^3/uL Erythrocyte Sedimentation Rate 37 H 0-30 MM/HR Sodium Level 139 135-145 MMOL/L Potassium Level 3.9 3.6-5.0 MMOL/L Chloride Level 109 H 98-107 MMOL/L Carbon Dioxide Level 21 21-32 MMOL/L Anion Gap 9 5-14 MMOL/L Blood Urea Nitrogen 21 H 7-18 MG/DL Creatinine 1.28 0.60-1.30 MG/DL Estimat Glomerular Filtration Rate 57 BUN/Creatinine Ratio 16 Glucose Level 106 H 70-105 MG/DL Calcium Level 9.5 8.5-10.1 MG/DL Corrected Calcium 9.4 8.5-10.1 MG/DL Total Bilirubin 0.4 0.1-1.0 MG/DL Aspartate Amino Transf (AST/SGOT) 19 5-34 U/L Alanine Aminotransferase (ALT/SGPT) 16 0-55 U/L Alkaline Phosphatase 66 40-136 U/L C-Reactive Protein High Sensitivity 0.19 0.00-0.50 MG/DL Total Protein 7.5 6.4-8.2 GM/DL Albumin 4.1 3.2-4.5 GM/DL (RENETTA KAMINSKI MD) Medications Given in ED Current Medications Medications Dose Ordered Sig/Joann Route Start Time Stop Time Status Last Admin Dose Admin Hydralazine HCl 10 mg ONCE ONCE IV 02/22/23 06:00 02/22/23 06:01 DC 02/22/23 05:54 10 MG Ketorolac Tromethamine 30 mg ONCE ONCE IVP 02/22/23 05:45 02/22/23 05:47 DC 02/22/23 05:55 30 MG (RENETTA KAMINSKI MD) Vital Signs/I&O 02/22/23 02/22/23 04:43 06:25 Temp 36.5 36.5 Pulse 70 72 Resp 16 16 B/P (MAP) 188/88 (121) 145/68 Pulse Ox 96 97 O2 Delivery Room Air Room Air (RENETTA KAMINSKI MD) Progress Progress Note : Progress Note VITALS ON ARRIVAL: (ADONIS SYED DO) Progress Note : Time: 11:09 Progress Note Patient[facility] called stating [facility] get [facility] Prescriptions were resent to [facility]. (RENETTA KAMINSKI MD) Diagnostic Imaging Comments CT HEAD--NO INTRACRANIAL HEMORRHAGE OR MASS EFFECT; MILD PARANASAL SINUS DISEAS E--PER [facility] RADIOLOGIST VIA PHONE AND FAX AT [phone] Reviewed: Reviewed by Me, Discussed w/Radiologist (ADONIS SYED DO) Departure Impression Primary Impression: Headache Additional Impressions: Sinusitis HTN (hypertension) Disposition: 01 HOME, SELF-CARE Condition: Improved Departure-Patient Inst. Decision time for Depature: 06:14 (ADONIS SYED DO) Referrals: ZAY HAMMOND MD (PCP/Family) Primary Care Physician Patient Instructions: Headache, Adult ED, High Blood Pressure ED, Sinusitis, Adult ED Add. Discharge Instructions: CONTINUE YOUR REGULAR MEDICATIONS PRESCRIBED TYLENOL 1 GRAM PLUS MOTRIN 800 MG 4 TIMES A DAY FOR PAIN FOLLOW UP WITH YOUR DR. IN 2-3 DAYS IF NO BETTER All discharge instructions reviewed with patient and/or family. Voiced understanding. Scripts Azelastine HCl (Azelastine HCl) 137 Mcg (0.1 %) Frostproof.pump 137 MCG NS BID, #1 EA Prov: RENETTA KAMINSKI MD 02/22/23 Fluticasone Propionate (Flonase Allergy Relief) 50 Mcg/Actuation Frostproof.susp 2 SPRAY NS DAILY, #1 EACH 2 SPRAYS PER NOSTRIL DAILY X 2 DAYS THEN 1 SPRAY DAILY Prov: RENETTA KAMINSKI MD 02/22/23 Doxycycline Hyclate (Doxycycline Hyclate) 100 Mg Tablet 100 MG PO BID, #20 TAB 0 Refills Prov: RENETTA KAMINSKI MD 02/22/23 ADONIS SYED DO Feb 22, 2023 05:05 RENETTA KAMINSKI MD Feb 22, 2023 11:10
[2023-02-22 05:18] LABS: BASOPHILS # (AUTO) 0.1 10^3/uL (0.0-0.1); BASOPHILS % (AUTO) 1 % (0-10); EOSINOPHILS # (AUTO) 0.4 10^3/uL (0.0-0.3); EOSINOPHILS % (AUTO) 4 % (0-10); HEMATOCRIT 40 % (40-54); HEMOGLOBIN 13.4 g/dL (13.3-17.7); LYMPHOCYTES # (AUTO) 2.2 10^3/uL (1.0-4.0); LYMPHOCYTES % (AUTO) 26 % (12-44); MEAN CORPUSCULAR HEMOGLOBIN 31 pg (25-34); MEAN CORPUSCULAR HGB CONC 34 g/dL (32-36); MEAN CORPUSCULAR VOLUME 92 fL (80-99); MEAN PLATELET VOLUME 10.8 fL (9.0-12.2); MONOCYTES # (AUTO) 0.7 10^3/uL (0.0-1.0); MONOCYTES % (AUTO) 9 % (0-12); NEUTROPHILS # (AUTO) 5.1 10^3/uL (1.8-7.8); NEUTROPHILS % (AUTO) 60 % (42-75); PLATELET COUNT 174 10^3/uL (130-400); WHITE BLOOD COUNT 8.5 10^3/uL (4.3-11.0)
[2023-02-22 05:43] LABS: ALBUMIN 4.1 GM/DL (3.2-4.5); ERYTHROCYTE SEDIMENTATION RATE 37 MM/HR (0-30)
[2023-02-22 05:44] LABS: POTASSIUM 3.9 MMOL/L (3.6-5.0)
[2023-02-22 05:45] LABS: CALCIUM 9.5 MG/DL (8.5-10.1)
[2023-02-22] MEDS ORDERED: KETOROLAC INJ 30 MG/ML VIAL IVP ONE (05:45)
[2023-02-22 05:46] LABS: TOTAL PROTEIN 7.5 GM/DL (6.4-8.2)
[2023-02-22 05:48] LABS: BILIRUBIN,TOTAL 0.4 MG/DL (0.1-1.0)
[2023-02-22 05:50] LABS: CREATININE SERUM 1.28 MG/DL (0.60-1.30)
[2023-02-22] MEDS ORDERED: hydrALAZINE INJECTION 20 MG/ML VIAL IV ONE (06:00)
--- NOTE | 2023-02-22 06:04 | Diagnostic Imaging Report ---
PROCEDURE: CT head wo r/o stroke. TECHNIQUE: Multiple contiguous axial images were obtained through the brain without the use of intravenous contrast. Auto Exposure Controls were utilized during the CT exam to meet ALARA standards for radiation dose reduction. INDICATION: Right-sided headache for 2 days. COMPARISON: 05/01/2015. DISCUSSION: No acute intracranial hemorrhage, mass, midline shift, hydrocephalus. The ventricles and sulci are normal size and configuration for age. Moderate mucosal thickening within the bilateral ethmoid air cells and to a lesser degree the right maxillary sinus and left frontal sinus. No air-fluid level. IMPRESSION: 1. No acute intracranial abnormality identified. 2. Pansinusitis. 3. Agree with preliminary report. Dictated by: Dictated on workstation # [id number]
[2023-02-22] MEDS ORDERED: FLUT9.9S NS ×2 (06:16→11:09)
[2023-02-22] MEDS ORDERED: AZEL137S11 NS ×2 (06:16→11:09)
[2023-02-22] MEDS ORDERED: DOXY100T2 PO ×2 (06:16→11:09)
[2023-02-22 06:25] VITALS: BP 145/68
== END 2023-02-22 06:25 | disposition home or self-care (01) ==
LOC: EDUNIT# 04:15 → ER 04:18
DX: J32.9 Chronic sinusitis, unspecified (principal); I10 Essential (primary) hypertension; F17.210 Nicotine dependence, cigarettes, uncomplicated; Z88.0 Allergy status to penicillin; Z88.1 Allergy status to other antibiotic agents
CPT/HCPCS: 36415; 70450; 80053; 85025; 85652; 86141; 87636; 93041; 96374; 96375

== ENCOUNTER 2023-03-02 15:30 | Emergency (ER) | payer OTHER, MEDICARE ==
[~2023-03-02] VITALS: Ht 175 cm; Wt 74.4 kg
[~2023-03-02 15:30] MED LIST changes: +AZEL137S11 NS; +DOXY100T2 PO; +FLUT9.9S NS
[2023-03-02 16:05] LABS: BASOPHILS % (AUTO) 0 % (0-10); EOSINOPHILS # (AUTO) 0.2 10^3/uL (0.0-0.3); EOSINOPHILS % (AUTO) 2 % (0-10); HEMATOCRIT 45 % (40-54); HEMOGLOBIN 15.4 g/dL (13.3-17.7); LYMPHOCYTES # (AUTO) 2.4 10^3/uL (1.0-4.0); LYMPHOCYTES % (AUTO) 24 % (12-44); MEAN CORPUSCULAR HEMOGLOBIN 31 pg (25-34); MEAN CORPUSCULAR HGB CONC 35 g/dL (32-36); MEAN CORPUSCULAR VOLUME 90 fL (80-99); MEAN PLATELET VOLUME 11.8 fL (9.0-12.2); MONOCYTES # (AUTO) 0.8 10^3/uL (0.0-1.0); MONOCYTES % (AUTO) 8 % (0-12); NEUTROPHILS # (AUTO) 6.5 10^3/uL (1.8-7.8); NEUTROPHILS % (AUTO) 65 % (42-75); PLATELET COUNT 199 10^3/uL (130-400)
--- NOTE | 2023-03-02 16:09 | ED Chest Pain ---
General Chief Complaint: Chest Pain Stated Complaint: CHEST PAINS, LIGHTHEADED, SOA Nursing Triage Note: PT STATES CHEST PAIN, SOB, AND LOW BP SINCE THIS MORNING 10:00. PT AMBULATED TO RM 6. STATES HYPERTENSION LAST WEEK AND THEN LOW TODAY AFTER TAKING MEDS Source: patient Exam Limitations: no limitations History of Present Illness Date Seen by Provider: Mar 02, 2023 Time Seen by Provider: 15:50 Initial Comments Patient is a 77-year-old male who presents to the emergency room with a chief complaint of right-sided chest discomfort, feeling short of air, lightheaded and low blood pressure today. He states that he was recently referred to a wire photo operator (Serene Gutierrez) and is supposed to be scheduled to have an echocardiogram soon. He states when he saw the wire photo operator last week he was started on HCTZ. He has been taking it at night. He states he also takes that with his losartan blood pressure medication. He denies any radiation of the pain, he is not nauseated. He was checking his blood pressure multiple times throughout the morning since 10 AM when his symptoms started and his blood pressures were consistently low in the 70s and 80s systolic. He decided to come to the emergency room when his blood pressures were consistently low. On arrival his blood pressures are in the 130s, 140s. I did orthostatic vital signs with my evaluation and they were not abnormal. He does feel generally weak. Is currently not having any chest discomfort. He has never had a stress test or cardiac cath. He is a daily smoker "1 cigarette a day". Patient seen a week ago for his headaches and diagnosed with "pansinusitis". He ultimately saw Dr Paul because he developed "double vision" in his right eye - Dr Paul told him it was due to his BP being so high and advised to patch his eye and will continue to follow him up monthly. Reportedly he told the patient that this should spontaneously resolve. 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 No recent fevers, chills, cough or congestion. He has had persistent frontal headaches with a fairly recent diagnosis of sinus infection for which she completed a course of antibiotics. Primary care physician is Dr. HAMMOND. Timing/Duration: 4-6 hours Severity/Quality: moderate, sharp Location: other (right chest) Radiation: no radiation Prior CP/Workup: no prior chest pain, no prior cardiac workup ASA po MEDICAL RESIDENT: No NTG SL MEDICAL RESIDENT: No Associated Symptoms: fatigue, shortness of breath, weakness (elt like he was going to pass out) Allergies and Home Medications Allergies Coded Allergies: Penicillins (Verified Allergy, Unknown, 10/01/17) cephalexin (Verified Allergy, Unknown, 05/01/15) Patient Home Medication List Home Medication List Reviewed: Yes Aspirin (Aspirin) 81 Mg Tab.chew, 81 MG PO DAILY, (Reported) Entered as Reported by: SALLY QUEEN on 10/03/20 0945 Azelastine HCl (Azelastine HCl) 137 Mcg (0.1 %) Ensign.pump, 137 MCG NS BID Prescribed by: RENETTA GUERRERO on 02/22/23 110 Doxycycline Hyclate (Doxycycline Hyclate) 100 Mg Tablet, 100 MG PO BID Prescribed by: RENETTA GUERRERO on 02/22/23 110 Fluticasone Propionate (Flonase Allergy Relief) 50 Mcg/Actuation Ensign.susp, 2 SPRAY NS DAILY Prescribed by: RENETTA GUERRERO on 02/22/23 110 Losartan Potassium (Losartan Potassium) Unknown Strength Tablet, 1 TAB PO DAILY, (Reported) Entered as Reported by: SALLY QUEEN on 10/03/20 0945 Rosuvastatin Calcium (Rosuvastatin Calcium) 20 Mg Tablet, (Reported) Entered as Reported by: SWAPNA BADILLO on 04/27/22 100 [tamsulosin] , (Reported) Entered as Reported by: SWAPNA BADILLO on 04/27/22 1008 Review of Systems Review of Systems Constitutional: see HPI EENTM: No Symptoms Reported Respiratory: Shortness of Air Cardiovascular: Chest Pain Gastrointestinal: No Symptoms Reported Genitourinary: No Symptoms Reported Musculoskeletal: no symptoms reported Skin: no symptoms reported Psychiatric/Neurological: No Symptoms Reported All Other Systems Reviewed Negative Unless Noted: Yes Past Weelgzc-Wmuols-Wpsvsk Hx Patient Social History Tobacco Use?: Yes Tobacco type used: Cigarettes Smoking Status: Current Everyday Smoker Substance use?: No Alcohol Use?: No Immunizations Up To Date First/Initial COVID19 Vaccinat: X3 Second COVID19 Vaccination Edmund: X3 Third COVID19 Vaccination Date: X3 Past Medical History Surgery/Hospitalization HX: APPENDECTOMY, T/A, HIGH CHOLESTEROL, HTN, BPH Surgeries: Yes (THROAT) Adenoidectomy, Appendectomy, Tonsillectomy Respiratory: No Cardiac: Yes High Cholesterol, Hypertension Neurological: No Genitourinary: Yes Prostate Problems Gastrointestinal: No Musculoskeletal: No Endocrine: No Cancer: No Psychosocial: No Integumentary: No Family Medical History No Pertinent Family Hx Physical Exam Vital Signs Vital Signs - First Documented 03/02/23 03/02/23 15:34 18:12 Temp 35.2 Pulse 77 Resp 22 B/P (MAP) 155/84 (107) Pulse Ox 98 O2 Delivery Room Air Capillary Refill : Less Than 3 Seconds Height, Weight, BMI Height: 5'9.00" Weight: 174lbs. 0.0oz. 78.461352vr; 24.00 BMI Method:Stated General Appearance: No Apparent Distress, WD/WN HEENT: PERRL/EOMI Respiratory: Lungs Clear, Normal Breath Sounds, No Accessory Muscle Use, No Respiratory Distress Cardiovascular: Regular Rate, Rhythm, Normal Peripheral Pulses Gastrointestinal: Normal Bowel Sounds, Non Tender, Soft Extremity: Normal Inspection, Normal Range of Motion, No Calf Tenderness, No Pedal Edema Neurologic/Psychiatric: Oriented x3, No Motor/Sensory Deficits, Normal Mood/Affect, Other (right eye lateral rectus palsey) Skin: Normal Color, Warm/Dry Progress/Results/Core Measures Results/Orders Lab Results Laboratory Tests Test 03/02/23 15:39 Range/Units White Blood Count 10.0 4.3-11.0 10^3/uL Red Blood Count 4.98 4.30-5.52 10^6/uL Hemoglobin 15.4 13.3-17.7 g/dL Hematocrit 45 40-54 % Mean Corpuscular Volume 90 80-99 fL Mean Corpuscular Hemoglobin 31 25-34 pg Mean Corpuscular Hemoglobin Concent 35 32-36 g/dL Red Cell Distribution Width 13.5 10.0-14.5 % Platelet Count 199 130-400 10^3/uL Mean Platelet Volume 11.8 9.0-12.2 fL Immature Granulocyte % (Auto) 0 % Neutrophils (%) (Auto) 65 42-75 % Lymphocytes (%) (Auto) 24 12-44 % Monocytes (%) (Auto) 8 0-12 % Eosinophils (%) (Auto) 2 0-10 % Basophils (%) (Auto) 0 0-10 % Neutrophils # (Auto) 6.5 1.8-7.8 10^3/uL Lymphocytes # (Auto) 2.4 1.0-4.0 10^3/uL Monocytes # (Auto) 0.8 0.0-1.0 10^3/uL Eosinophils # (Auto) 0.2 0.0-0.3 10^3/uL Basophils # (Auto) 0.0 0.0-0.1 10^3/uL Immature Granulocyte # (Auto) 0.0 0.0-0.1 10^3/uL Prothrombin Time 14.4 12.2-14.7 SEC INR Comment 1.1 0.8-1.4 Activated Partial Thromboplast Time 33 24-35 SEC Sodium Level 135 135-145 MMOL/L Potassium Level 4.0 3.6-5.0 MMOL/L Chloride Level 101 98-107 MMOL/L Carbon Dioxide Level 19 L 21-32 MMOL/L Anion Gap 15 H 5-14 MMOL/L Blood Urea Nitrogen 17 7-18 MG/DL Creatinine 1.65 H 0.60-1.30 MG/DL Estimat Glomerular Filtration Rate 42 BUN/Creatinine Ratio 10 Glucose Level 136 H 70-105 MG/DL Calcium Level 10.4 H 8.5-10.1 MG/DL Magnesium Level 2.0 1.6-2.4 MG/DL Troponin I < 0.028 <0.028 NG/ML B-Type Natriuretic Peptide < 10.0 <100.0 PG/ML My Orders Orders - JESSICA ROLLINS MD Ekg Tracing (03/02/23 15:33) Cbc And Automated Diff (03/02/23 15:58) Magnesium (03/02/23 15:58) Chest 1 View, Ap/Pa Only (03/02/23 15:58) Protime With Inr (03/02/23 15:58) Partial Thromboplastin Time (03/02/23 15:58) Monitor-Rhythm Ecg Trace Only (03/02/23 15:58) Bnp Debra (03/02/23 15:58) Troponin I Debra (03/02/23 15:58) Basic Metabolic Panel (03/02/23 15:58) Acetaminophen Tablet (Acetaminophen Ta (03/02/23 18:00) Medications Given in ED Vital Signs/I&O 03/02/23 03/02/23 15:34 18:12 Temp 35.2 35.2 Pulse 77 81 Resp 22 18 B/P (MAP) 155/84 (107) 126/65 Pulse Ox 98 O2 Delivery Room Air Room Air Blood Pressure Mean: 107 Progress Progress Note : Time: 17:58 Progress Note Patient seen and evaluated by me. Evaluation today includes history, physical exam, "chest pain work-up to include CBC, BMP, magnesium, serum troponin, BNP, EKG and single view chest x-ray. Pertinent physical exam findings include well- developed well-nourished 77-year-old male in no acute distress. Heart is regular, lungs are clear. Abdomen is soft and nondistended. Lower extremities are without edema, calf tenderness. He has no reproducible chest wall tenderness. Vital signs are stable. He is not hypoxic or tachycardic. Differential diagnosis includes STEMI versus NSTEMI, congestive heart failure, dehydration, anemia, overmedication. Patient's labs, EKG and chest x-ray independently reviewed and interpreted by me. His CBC is normal. His basic metabolic panel is pertinent for slightly decreased CO2 at 19, BUN and creatinine of 17 and 1.65 which is a little over the patient's baseline. His glucose is 136. Troponin is undetectable, BNP is undetectable. Chest x-ray shows no acute abnormalities. His EKG is normal sinus rhythm with Q waves in the inferior leads, no ST segment change. Patient is treated in the emergency department with 1 g of Tylenol p.o. He had no deterioration in his condition throughout his stay. No change on telemetry while being monitored on the surveillance monitor. I performed orthostatic vital signs myself, his blood pressure stayed in the 130s, 140s systolic. He did feel symptomatic on standing. He did not become tachycardic, heart rate went from 88-1 04 with standing. As the patient's chest discomfort started at approximately 10 AM we had a 5-hour troponin which was negative. This effectively rules out acute cardiac event. He has had no arrhythmia during monitoring. He does not appear to have congestive heart failure as his chest x-ray shows no effusion, infiltrate or edema. He has follow-up arranged with an outpatient visit to a [facility] wire photo operator. He is awaiting scheduling for an echocardiogram. He would be high risk as he is a smoker, history of hypertension and has never had stress test. He likely does need 1. As he has had recent initiation of hydrochlorothiazide diuretic I suspect that his symptoms are due to side effect from the HCTZ. I believe he is over diuresed. His CO2 is low his creatinine is elevated and he has orthostasis complaints. Encouraged him to drink plenty of fluids and advised him to hold off on the diuretic for a couple of days as well as his losartan. His discharge blood pressure is 114 systolic. I did contact his pharmacy, he states he feels at [facility]. The only medicine they have on file for him is the HCTZ. He filled a prescription there for losartan about a year ago but has not picked up refills. I also called [facility] pharmacy, he has had no blood pressure medications filled there either. I am concerned that maybe he is not taking his losartan or he is taking it and really does not need it and has been noncompliant in the past. I encouraged him to follow-up with Dr. Hammond's office regarding blood pressure management as well as the wire photo operator that he is seeing at [facility]. I advised him to return if he had a return of chest pain especially with sweating, shortness of breath or nausea. His is at the bedside and verbalized understanding of the discharge instructions as well. No concerning findings for STEMI or NSTEMI at this visit. All questions are sought and answered. Patient is stable for discharge. Initial ECG Impression Date: Mar 02, 2023 Initial ECG Impression Time: 15:36 Initial ECG Rate: 77 Initial ECG Rhythm: Normal Sinus Initial ECG Intervals: Normal Comment Q waves noted inferior leads, right bundle branch block, no ectopy. No ST segment elevation or depression noted Diagnostic Imaging Diagonstic Imaging: Xray Plain Films/CT/US/NM/MRI: chest Comments [facility], [facility]. [place], [place] NAME: IZABELLA SOUZA [facility] REC#: [id number] PT STATUS: REG ER : 1945 PHYSICIAN: JESSICA ROLLINS MD ADMIT DATE: 03/02/23/ER Draft Date of Exam:03/02/23 CHEST 1 VIEW, AP/PA ONLY INDICATION: Chest pain and shortness of breath, low blood pressure. COMPARISONS: 01/24/2020. FINDINGS: Single view chest shows a senescent chest with emphysematous changes and chronic parenchymal changes. No consolidations are seen. There is no effusion or pneumothorax. Soft tissues and bony thorax are senescent. IMPRESSION: Senescent chest, but no acute cardiopulmonary changes. Dictated on workstation # [id number] Dict: 03/02/23 1614 Trans: 03/02/23 1616 [id number] Interpreted by: VASQUEZ FELDER MD Electronically signed by: Departure Impression Primary Impression: Chest pain Qualified Codes: R07.9 - Chest pain, unspecified Additional Impression: Dehydration Disposition: HOME, SELF-CARE Condition: Stable Departure-Patient Inst. Decision time for Depature: 17:44 Referrals: ZAY HAMMOND MD (PCP/Family) Primary Care Physician Patient Instructions: Chest Pain Add. Discharge Instructions: Do not take your HCTZ/diuretic tonight. I would also hold the losartan that you have been taking. You need to call Dr Hammond's office and get in for an evaluation for your heachache. COntinue tylenol Extra Strength - 2 tablets every 6 hours as needed. Continue to take your baby aspirin daily. If you have any return of chest pain especially with sweating, worsening shor tness of breath or change/radiation of pain to your back, jaw or shoulders/arms - please return to the Emergency Department for re-evaluation. Please call the [facility] Manufacturing Management Associate tomorrow to enquire about scheduling your echocardiogram. Copy Copies To 1: ZAY HAMMOND MD, KATHRYN M MD Mar 02, 2023 16:09
[2023-03-02 16:10] LABS: CHLORIDE 101 MMOL/L (98-107); SODIUM 135 MMOL/L (135-145)
[2023-03-02 16:11] LABS: CALCIUM 10.4 MG/DL (8.5-10.1)
[2023-03-02 16:12] LABS: GLUCOSE 136 MG/DL (70-105)
[2023-03-02 16:13] LABS: CARBON DIOXIDE 19 MMOL/L (21-32); INR 1.1 (0.8-1.4); PROTHROMBIN TIME PATIENT 14.4 SEC (12.2-14.7)
[2023-03-02 16:15] LABS: CREATININE SERUM 1.65 MG/DL (0.60-1.30); GFR ESTIMATED 42
[2023-03-02 16:16] LABS: BUN/CREATININE RATIO 10
--- NOTE | 2023-03-02 16:16 | Diagnostic Imaging Report ---
INDICATION: Chest pain and shortness of breath, low blood pressure. COMPARISONS: 01/24/2020. FINDINGS: Single view chest shows a senescent chest with emphysematous changes and chronic parenchymal changes. No consolidations are seen. There is no effusion or pneumothorax. Soft tissues and bony thorax are senescent. IMPRESSION: Senescent chest, but no acute cardiopulmonary changes. Dictated by: Dictated on workstation # [id number]
[2023-03-02] MEDS ORDERED: ACETAMINOPHEN 500 MG TABLET PO ONE (18:00)
[2023-03-02 18:12] VITALS: BP 126/65
== END 2023-03-02 18:12 | disposition home or self-care (01) ==
LOC: EDUNIT# 15:30 → ER 15:33
DX: R07.89 Other chest pain (principal); E86.0 Dehydration; F17.210 Nicotine dependence, cigarettes, uncomplicated
CPT/HCPCS: 36415; 71045; 80048; 83735; 83880; 84484; 85025; 85610; 85730; 93005; 93041